=== PATIENT | female | born 1965 | race Caucasian/White ===

== ENCOUNTER → 2016-10-11 | Outpatient (CLI) | payer BC ==
--- NOTE | 2016-10-11 11:57 | DIAGNOSTIC IMAGING REPORT ---
CHEST 2 VIEWS ROUTINE CLINICAL HISTORY: Cough, asthma. COMPARISON STUDY: 05/21/2013 FINDINGS: The cardiac and mediastinal contours are normal. There is no evidence of focal pulmonary consolidation. There is no evidence of failure. No pleural effusions are visualized.[ There are bibasilar atelectatic changes. IMPRESSION: No active disease in the chest. Electronically signed by: Sarbjit Cisneros M.D. 10/11/2016 11:56 AM Dictated Date/Time: 10/11/2016 11:55 AM
== END | disposition home or self-care (01) ==
LOC: C.RAD1850 11:44
PROVIDERS: ATTEND Internal Medicine Pulmonary Disease
DX: J45.991 Cough variant asthma (principal)

== ENCOUNTER 2023-07-28 20:31 | Inpatient (IN) ==
[2023-07-28 22:33] LABS: Basophils # (auto) 0.01 K/uL (0.00-0.20); Basophils % (auto) 0.2 %; Eosinophils # (auto) 0.01 K/uL (0.00-0.50); Eosinophils % (auto) 0.2 %; Hematocrit (blood only) 39.8 % (37.0-47.0); Hemoglobin 13.5 g/dl (12.0-16.0); Immature Granulocytes # (auto) 0.02 K/uL (0.01-0.20); Immature Granulocytes % (auto) 0.3 %; Lymphocytes # (auto) 0.53 K/uL (1.20-3.40); Mean Corpuscular Hemoglobin 30.9 pg (25.0-34.0); Mean Corpuscular Hgb Conc 33.9 g/dL (32.0-36.0); Mean Corpuscular Volume 91.1 fL (80.0-100.0); Mean Platelet Volume 10.6 fL (9.4-12.4); Monocytes # (auto) 0.18 K/uL (0.11-0.59); Monocytes % (auto) 3.1 %; Neutrophils # (auto) 5.15 K/uL (1.40-6.50); Neutrophils % (auto) 87.2 %; Platelet Count 188 K/uL (130-400); RDW Coefficient of Variation 12.8 % (11.5-14.5); RDW Standard Deviation 42.8 fL (36.4-46.3); Red Blood Count 4.37 M/uL (4.20-5.40)
[2023-07-28 23:15] LABS: Albumin Level 4.3 gm/dl (3.4-5.0); Anion Gap 11 (3-11); Bilirubin,Total 0.4 mg/dl (0.2-1.0); Carbon Dioxide 22 mmol/L (21-32); Chloride 104 mmol/L (98-107); Potassium 3.9 mmol/L (3.5-5.1); Sodium 137 mmol/L (136-145)
[2023-07-28] MEDS ORDERED: ALBUT/IPRATROP 3MG/0.5MG NEB 3 ML VIAL NEB STA (23:16)
[2023-07-28 23:17] LABS: Adenovirus PCR Not Detected (NotDetected); Bordetella parapertussis PCR Not Detected (NotDetected); Bordetella pertussis PCR Not Detected (NotDetected); Chlamydia pneumoniae PCR Not Detected (NotDetected); Coronavirus 229E PCR Not Detected (NotDetected); Coronavirus HKU1 PCR Not Detected (NotDetected); Coronavirus NL63 PCR Not Detected (NotDetected); Coronavirus OC43PCR Not Detected (NotDetected); Human Metapneumovirus PCR Not Detected (NotDetected); Influenza A PCR Not Detected (NotDetected); Influenza B PCR Not Detected (NotDetected); Mycoplasma pneumoniae PCR Not Detected (NotDetected); Parainfluenza Virus 1 PCR Not Detected (NotDetected); Parainfluenza Virus 2 PCR Not Detected (NotDetected); Parainfluenza Virus 3 PCR Not Detected (NotDetected); Parainfluenza Virus 4 PCR Not Detected (NotDetected); Respiratory Syncytial VirusPCR Not Detected (NotDetected); Rhinovirus/Enterovirus PCR Not Detected (NotDetected)
--- NOTE | 2023-07-28 23:18 | Emergency Department Note ---
Impression & Plan Hypoxia ADMIT ED Provider Note HPI: History obtained from patient The patient is a 58-year-old female with history of asthma, presents emergency department with chief complaint of cough, wheezing, and shortness of breath that has been ongoing for the past 4 days. Patient states her symptoms have been worsening during this time, patient was seen at a local urgent care prior to arrival at the ED where she had a chest x-ray that she reports showed "double pneumonia". Patient was referred to the ED for further workup and lab work. On arrival here to the ED the patient is mildly hypertensive at 146/72, heart rate is within normal limits, respirations are normal, patient is afebrile on arrival, she has borderline oxygen saturation at 90% on room air on my initial assessment. ROS: - Per HPI Differential Diagnosis: Acute bacterial pneumonia, viral upper respiratory infection, asthma exacerbation, COVID-19 infection, influenza A infection, acute coronary syndrome, pulmonary embolism, amongst other potential pathologies. *Outpatient medications and allergy history reviewed. PE: General: Alert HEENT: Normocephalic, trachea midline Eyes: Extraocular eye movement is intact, no scleral erythema Pulmonary: Faint expiratory wheezing bilaterally without any crackles Cardio: Regular rate and rhythm GI: Abdomen is soft to palpation : No suprapubic tenderness MSK: No evidence of trauma or malformation of the extremities, no edema Skin: No evidence of rash Neuro: Alert, no focal deficits Psychiatric: Cooperative INDEPENDENT INTERPRETATIONS: property assessment monitor: (As interpreted by myself): - An order was placed for continuous cardiac monitoring - Patient was noted to be in sinus rhythm with a rate of 70 EKG: (As interpreted by myself): Rate: 68 Rhythm: Normal sinus rhythm Intervals: Within normal limits ST changes: No ST elevation Time: 2214 Chest x-ray: (As interpreted by myself): No evidence of acute infiltrate Interventions provided in ED: -DuoNeb breathing treatment Medical Decision Making: Patient presented to the emergency department with some wheezing and shortness of breath. She did receive a dose of intramuscular steroid prior to arrival from the urgent care facility. IV was established and lab work obtained, patient was placed on monitor tech. Lab work shows no leukocytosis, hemoglobin is normal, platelet count is normal, venous blood gas was obtained that shows a normal pH with slightly reduced pCO2 at 36. CMP does not show any critical findings, no evidence of acute kidney injury, no transaminitis, troponin is negative x 1. BNP is within normal limits, EKG per my interpretation shows normal sinus rhythm without any acute ischemic changes. Procalcitonin is also noted to be low. Viral panel testing is positive for COVID-19. I suspect this is likely the source of the patient's shortness of breath. Patient denies any chest pain, doubt ACS or PE given negative troponin, lack of CP, and reassuring EKG. Patient did have an episode of hypoxia to 87 to 88% on room air while here in the ED that was sustained, she was placed on oxime mask at 5 L with moderate improvement. Following DuoNeb breathing treatment here in the ED, the patient states she does feel mildly improved. She did receive intramuscular steroids at the urgent care today therefore she was not given any steroids here tonight. Given the patient's hypoxia I did recommend admission, she was in agreement following our discussion with her also at the bedside. Case was discussed with the on-call hospitalist for [facility], Dr. Du, the patient was placed for admission in stable condition. Consultants/Discussions held with other healthcare providers: -Hospitalist, Dr. Du Disposition discussion held by myself with: -Patient and at bedside * CRITICAL CARE TIME: ( 43 ) minutes -Stabilization of hypoxia with oxygen saturations at 88% on room air requiring supplemental oxygen for correction, interpretations of diagnostic studies including chest x-ray and EKG, time spent at the bedside, discussion with patient and family, discussion with other healthcare providers/physicians and arrangement of admission Diagnosis: 1. Hypoxia, acute 2. COVID-19 infection, acute 3. Bronchospasm, acute Disposition: Admission Otf Cosme DO Emergency Medicine Past Med/Surg History Social History Smoking Status: Current every day smoker Tobacco Type: Cigarettes Feels Safe at Home: Yes Allergies Allergies Allergy/AdvReac Type Severity Reaction Status Date / Time prochlorperazine AdvReac spasms Verified 07/29/23 00:57 [From Compazine] Home Meds Home Medications Medication Instructions Recorded Confirmed No Known Home Medications 07/29/23 07/29/23 Results & Data (ED) Vital Signs Vital Signs - 24 hr 07/28/23 21:09 07/28/23 22:59 07/28/23 22:59 Temperature 36.6 C Temperature Source Oral Pulse Rate 78 Pulse Rate [Finger] 62 Respiratory Rate 25 H 20 Respiratory Effort / Characteristics Non-Labored Respiratory Depth Normal Normal Blood Pressure 130/73 Blood Pressure [Left Arm] 146/72 H Blood Pressure Mean 92 Blood Pressure Mean [Left Arm] 96 Blood Pressure Position [Left Arm] Pulse Oximetry 92 97 90 Oxygen Delivery Method Room Air Room Air Room Air Oxygen Flow Rate Sepsis Recent Fever Within 48 Hours No Sepsis New/Unexplained Change in Mental Status N/A Sepsis Action Taken by Nursing No Action Required Oxygen Flow Rate - Titration Pulse Oximetry Post Tiitration 07/28/23 23:42 07/29/23 00:19 07/29/23 01:06 Temperature Temperature Source Pulse Rate 73 Pulse Rate [Finger] 67 Respiratory Rate 18 Respiratory Effort / Characteristics Non-Labored Spontaneous Respiratory Depth Normal Blood Pressure Blood Pressure [Left Arm] 120/71 Blood Pressure Mean Blood Pressure Mean [Left Arm] 87 Blood Pressure Position [Left Arm] Pulse Oximetry 87 L 90 Oxygen Delivery Method Room Air Oxymask Oxymask Oxygen Flow Rate 0 4 Sepsis Recent Fever Within 48 Hours Sepsis New/Unexplained Change in Mental Status Sepsis Action Taken by Nursing Oxygen Flow Rate - Titration 2 Pulse Oximetry Post Tiitration 92 07/29/23 02:04 07/29/23 02:12 Temperature Temperature Source Pulse Rate Pulse Rate [Finger] 65 Respiratory Rate 16 Respiratory Effort / Characteristics Respiratory Depth Blood Pressure Blood Pressure [Left Arm] 121/73 Blood Pressure Mean Blood Pressure Mean [Left Arm] 89 Blood Pressure Position [Left Arm] Sitting Pulse Oximetry 91 88 L Oxygen Delivery Method Oxymask Oxymask Oxygen Flow Rate 4 2 Sepsis Recent Fever Within 48 Hours Sepsis New/Unexplained Change in Mental Status Sepsis Action Taken by Nursing Oxygen Flow Rate - Titration 4 Pulse Oximetry Post Tiitration 91 Laboratory Data 07/28/23 22:16 07/28/23 22:16 Lab Results 07/28/23 07/28/23 Range/Units 22:16 23:21 WBC 5.90 (4.8-10.8) K/ul RBC 4.37 (4.20-5.40) M/uL Hgb 13.5 (12.0-16.0) g/dl Hct 39.8 (37.0-47.0) % MCV 91.1 (80.0-100.0) fL MCH 30.9 (25.0-34.0) pg MCHC 33.9 (32.0-36.0) g/dL RDW Std Deviation 42.8 (36.4-46.3) fL RDW Coeff of More 12.8 (11.5-14.5) % Plt Count 188 (130-400) K/uL MPV 10.6 (9.4-12.4) fL Immature Gran % (Auto) 0.3 % Neut % (Auto) 87.2 % Lymph % (Auto) 9.0 % [place] % (Auto) 3.1 % Eos % (Auto) 0.2 % Baso % (Auto) 0.2 % Neut # (Auto) 5.15 (1.40-6.50) K/uL Lymph # (Auto) 0.53 L (1.20-3.40) K/uL [place] # (Auto) 0.18 (0.11-0.59) K/uL Eos # (Auto) 0.01 (0.00-0.50) K/uL Baso # (Auto) 0.01 (0.00-0.20) K/uL Immature Gran # (Auto) 0.02 (0.01-0.20) K/uL VBG pH 7.41 (7.36-7.41) VBG pCO2 36 L (38-50) mmHg VBG pO2 56 mmHg VBG HCO3 23 mmol/L VBG O2 Saturation 88.6 % VBG Base Excess -1.4 mEq/L Sodium 137 (136-145) mmol/L Potassium 3.9 (3.5-5.1) mmol/L Chloride 104 (98-107) mmol/L Carbon Dioxide 22 (21-32) mmol/L Anion Gap 11 (3-11) BUN 16 (6-23) mg/dl Creatinine 0.94 (0.6-1.2) mg/dl Est Cr Clr Drug Dosing 76.0 ml/min Est GFR ( Amer) 77.0 ml/min Est GFR (Non-Af Amer) 66.4 ml/min BUN/Creatinine Ratio 17.0 (10-20) Glucose 154 H (70-99(Fasting)) mg/dl Calcium 9.0 (8.6-10.3) mg/dl Total Bilirubin 0.4 (0.2-1.0) mg/dl AST 19 (13-39) U/L ALT 19 (7-52) U/L Alkaline Phosphatase 74 (34-104) U/L Troponin I High Sens < 2.3 (0-14) pg/ml B-Natriuretic Peptide 9 (0-100) pg/ml Total Protein 7.8 (6.0-8.3) gm/dl Albumin 4.3 (3.4-5.0) gm/dl Globulin 3.5 (2.5-4.0) gm/dl Albumin/Globulin Ratio 1.2 (0.9-2) Procalcitonin < 0.05 (0-0.5) ng/ml Adenovirus (PCR) Not Detected (NotDetected) B. pertussis DNA (PCR) Not Detected (NotDetected) B.parapertussis DNA PCR Not Detected (NotDetected) C. pneumoniae DNA (PCR) Not Detected (NotDetected) Coronavirus OC43 (PCR) Not Detected (NotDetected) Coronavirus HKU1 (PCR) Not Detected (NotDetected) Coronavirus 229E (PCR) Not Detected (NotDetected) SARS-CoV-2 (PCR) DETECTED A* (NotDetected) Coronavirus NL63 (PCR) Not Detected (NotDetected) Human Metapneumovir PCR Not Detected (NotDetected) Influenza Type A (PCR) Not Detected (NotDetected) Influenza Type B (PCR) Not Detected (NotDetected) M. pneumoniae (PCR) Not Detected (NotDetected) Parainfluenza 1 (PCR) Not Detected (NotDetected) Parainfluenza 2 (PCR) Not Detected (NotDetected) Parainfluenza 3 (PCR) Not Detected (NotDetected) Parainfluenza 4 (PCR) Not Detected (NotDetected) RSV (PCR) Not Detected (NotDetected) Entero/Rhino (PCR) Not Detected (NotDetected) Administered Medications Discontinued Medications Albuterol (Albut/Ipratrop 3mg/0.5mg Neb 3 Ml Vial) 3 ml NEB NOW STA; Protocol Stop: 07/28/23 23:17 Last Admin: 07/28/23 23:21 Dose: 3 ml Documented By: DOE Discharge Plan Visit Data Chief Complaint: Respiratory Problems Stated Complaint: ?PNEUMONIA, TROUBLE BREATHING ED Provider: Otf Cosme Discharge Problem: Hypoxia Forms Stand Alone Forms: My [facility] [employer] [place] Prescriptions Prescriptions: No Action No Known Home Medications Referrals Referrals: Elian Newman MD [Primary Care Provider] -
[2023-07-28 23:19] LABS: Coronavirus CoV-2 (COVID19)PCR DETECTED (NotDetected)
[2023-07-28 23:21] LABS: Alanine Aminotransferase 19 U/L (7-52); Albumin Globulin Ratio 1.2 (0.9-2); Alkaline Phosphatase 74 U/L (34-104); Aspartate Aminotransferase 19 U/L (13-39); Blood Urea Nitrogen 16 mg/dl (6-23); Est GFR (Non-African American) 66.4 ml/min; Globulin 3.5 gm/dl (2.5-4.0); Glucose 154 mg/dl (70-99(Fasting)); Total Protein 7.8 gm/dl (6.0-8.3)
[2023-07-28 23:32] LABS: Base Excess VBG -1.4 mEq/L; HCO3 VBG 23 mmol/L; Oxygen Saturation VBG 88.6 %; PCO2 VBG 36 mmHg (38-50); PO2 VBG 56 mmHg; pH VBG 7.41 (7.36-7.41)
[2023-07-29 01:49] LABS: Troponin I High Sensitivity < 2.3 pg/ml (0-14)
[2023-07-29] MEDS ORDERED: ALBUT/IPRATROP 3MG/0.5MG NEB 3 ML VIAL ONE (02:54)
[2023-07-29] MEDS ORDERED: ALBUT/IPRATROP 3MG/0.5MG NEB 3 ML VIAL NEB STA ×2 (02:55→03:05)
--- NOTE | 2023-07-29 04:51 | History & Physical Report ---
Date of Service July 29, 2023 Assessment & Plan (1) Acute hypoxemic respiratory failure: Plan: 58-year-old female past med significant for cough variant asthma currently not on any inhalers presents with cough and shortness of breath and found to have COVID requiring 10 L oxygen. Acute hypoxemic respiratory failure Secondary to COVID and asthma exacerbation Requiring 10 L oxygen Last COVID booster was in March 2022 DuoNebs QID and as needed IV Solu-Medrol 40 mg 3 times daily IV remdesivir and follow remdesivir labs COVID precautions Pulmonary consult Close monitoring telemetry DVT prophylaxis Lovenox Disposition telemetry floor Full code History of Present Illness Chief Complaint: Shortness of breath and cough Primary Care Provider: Elian Newman MD 58-year-old female with past med history significant for cough variant asthma currently not on any inhalers presents with cough and shortness of breath and found to have COVID. Patient states 4 days ago she developed sore throat, next day she had headaches and fatigue and cough. Headache lasted for 2 days and resolved. Since yesterday she is having lot of cough short of breath and runny nose. Denies fevers. She went to [facility] and thought she has pneumonia and also given dose of steroid and sent here. Respiratory bio fire came back positive for COVID. Currently requiring 10 liters oxygen. Having lot of cough. Currently no headache. No blurred visions. No earache. No chest pain. No some nausea. Appetite is down. No abdominal pain. No swelling in the legs. No rash. Micturating okay. Past medical history. As mentioned above Past surgical history. Right arm cyst removed. Removal of pilonidal cyst. Family history. Paternal grandfather had cancer. Maternal grandmother had cancer. Uncle had cancer. Sister had gallbladder removal. Father and mother both had hypertension. Social history. Former smoker. No alcohol use. No drug use. Allergies Allergy/AdvReac Type Severity Reaction Status Date / Time prochlorperazine AdvReac spasms Verified 07/29/23 00:57 [From Compazine] Home Medications Medication Instructions Recorded Confirmed Type No Known Home Medications 07/29/23 07/29/23 History Past Med/Surg History Social History Smoking Status: Former smoker Tobacco Type: Cigarettes Second Hand Exposure: No; Do You Dip or Chew Tobacco: No; Tobacco Cessation Education Requested by Patient: No Hx Alcohol Use: Yes Hx Substance Use: No Preferred Language: Kyrgyz Communication Ability: Effective Oyster Buyer Required: No Beliefs That Will Affect Care: None Current Living Situation: Spouse Other Information That Helps Us Care for You: No Feels Safe at Home: Yes Safety Concerns: Feels Safe At This Time Assistive Devices: None Review of Systems Review of Systems: All systems reviewed & are unremarkable except as noted in HPI & below Physical Exam Physical Exam: General- Not in distress Head- atraumatic Eyes- PERRL. ENT- oropharynx clear Neck- supple, no JVD. Lungs- B/L diminished breath sounds. No obvious wheezing. Heart- regular rhythm; no murmur, no gallop. Abdomen- normal bowel sounds, soft, nontender, no distension. Extremities- no pretibial edema, moves extremities. Neuro- alert, oriented x 3; PERRL, no facial palsy; no dysarthria; moves extremities. Skin- warm & dry Results & Data Results & Data Vital Signs (Past 12 Hours) Vital Signs Temp Pulse Pulse Resp BP BP Pulse Ox 07/29/23 04:05 36.7 C 88 24 126/75 92 07/29/23 02:36 89 L 07/29/23 02:12 88 L 07/29/23 02:04 65 16 121/73 91 07/29/23 01:06 73 07/29/23 00:19 67 18 120/71 90 07/28/23 23:42 87 L 07/28/23 22:59 62 20 146/72 H 90 07/28/23 22:59 97 07/28/23 21:09 36.6 C 78 25 H 130/73 92 O2 Del Method O2 Flow Rate 07/29/23 04:05 Oxymask 10 07/29/23 02:36 Oxymask 4 07/29/23 02:12 Oxymask 2 07/29/23 02:04 Oxymask 4 07/29/23 01:06 07/29/23 00:19 Oxymask 4 07/28/23 23:42 Room Air, Oxymask 0 07/28/23 22:59 Room Air 07/28/23 22:59 Room Air 07/28/23 21:09 Room Air Diagnostic Findings Laboratory Results WBC 5.90 K/ul (4.8-10.8) 07/28/23 22:16 RBC 4.37 M/uL (4.20-5.40) 07/28/23 22:16 Hgb 13.5 g/dl (12.0-16.0) 07/28/23 22:16 Hct 39.8 % (37.0-47.0) 07/28/23 22:16 MCV 91.1 fL (80.0-100.0) 07/28/23 22:16 MCH 30.9 pg (25.0-34.0) 07/28/23 22:16 MCHC 33.9 g/dL (32.0-36.0) 07/28/23 22:16 RDW Std Deviation 42.8 fL (36.4-46.3) 07/28/23 22:16 RDW Coeff of More 12.8 % (11.5-14.5) 07/28/23 22:16 Plt Count 188 K/uL (130-400) 07/28/23 22:16 MPV 10.6 fL (9.4-12.4) 07/28/23 22:16 Immature Gran % (Auto) 0.3 % 07/28/23 22:16 Neut % (Auto) 87.2 % 07/28/23 22:16 Lymph % (Auto) 9.0 % 07/28/23 22:16 [place] % (Auto) 3.1 % 07/28/23 22:16 Eos % (Auto) 0.2 % 07/28/23 22:16 Baso % (Auto) 0.2 % 07/28/23 22:16 Neut # (Auto) 5.15 K/uL (1.40-6.50) 07/28/23 22:16 Lymph # (Auto) 0.53 K/uL (1.20-3.40) L 07/28/23 22:16 [place] # (Auto) 0.18 K/uL (0.11-0.59) 07/28/23 22:16 Eos # (Auto) 0.01 K/uL (0.00-0.50) 07/28/23 22:16 Baso # (Auto) 0.01 K/uL (0.00-0.20) 07/28/23 22:16 Immature Gran # (Auto) 0.02 K/uL (0.01-0.20) 07/28/23 22:16 VBG pH 7.41 (7.36-7.41) 07/28/23 23:21 VBG pCO2 36 mmHg (38-50) L 07/28/23 23:21 VBG pO2 56 mmHg 07/28/23 23:21 VBG HCO3 23 mmol/L 07/28/23 23:21 VBG O2 Saturation 88.6 % 07/28/23 23:21 VBG Base Excess -1.4 mEq/L 07/28/23 23:21 Sodium 137 mmol/L (136-145) 07/28/23 22:16 Potassium 3.9 mmol/L (3.5-5.1) 07/28/23 22:16 Chloride 104 mmol/L (98-107) 07/28/23 22:16 Carbon Dioxide 22 mmol/L (21-32) 07/28/23 22:16 Anion Gap 11 (3-11) 07/28/23 22:16 BUN 16 mg/dl (6-23) 07/28/23 22:16 Creatinine 0.94 mg/dl (0.6-1.2) 07/28/23 22:16 Est Cr Clr Drug Dosing 76.0 ml/min 07/28/23 22:16 Est GFR ( Amer) 77.0 ml/min 07/28/23 22:16 Est GFR (Non-Af Amer) 66.4 ml/min 07/28/23 22:16 BUN/Creatinine Ratio 17.0 (10-20) 07/28/23 22:16 Glucose 154 mg/dl (70-99(Fasting)) H 07/28/23 22:16 Calcium 9.0 mg/dl (8.6-10.3) 07/28/23 22:16 Total Bilirubin 0.4 mg/dl (0.2-1.0) 07/28/23 22:16 AST 19 U/L (13-39) 07/28/23 22:16 ALT 19 U/L (7-52) 07/28/23 22:16 Alkaline Phosphatase 74 U/L (34-104) 07/28/23 22:16 Troponin I High Sens < 2.3 pg/ml (0-14) 07/28/23 22:16 B-Natriuretic Peptide 9 pg/ml (0-100) 07/28/23 23:21 Total Protein 7.8 gm/dl (6.0-8.3) 07/28/23 22:16 Albumin 4.3 gm/dl (3.4-5.0) 07/28/23 22:16 Globulin 3.5 gm/dl (2.5-4.0) 07/28/23 22:16 Albumin/Globulin Ratio 1.2 (0.9-2) 07/28/23 22:16 Procalcitonin < 0.05 ng/ml (0-0.5) 07/28/23 23:21 Adenovirus (PCR) Not Detected (NotDetected) 07/28/23 22:16 B. pertussis DNA (PCR) Not Detected (NotDetected) 07/28/23 22:16 B.parapertussis DNA PCR Not Detected (NotDetected) 07/28/23 22:16 C. pneumoniae DNA (PCR) Not Detected (NotDetected) 07/28/23 22:16 Coronavirus OC43 (PCR) Not Detected (NotDetected) 07/28/23 22:16 Coronavirus HKU1 (PCR) Not Detected (NotDetected) 07/28/23 22:16 Coronavirus 229E (PCR) Not Detected (NotDetected) 07/28/23 22:16 SARS-CoV-2 (PCR) DETECTED (NotDetected) A* 07/28/23 22:16 Coronavirus NL63 (PCR) Not Detected (NotDetected) 07/28/23 22:16 Human Metapneumovir PCR Not Detected (NotDetected) 07/28/23 22:16 Influenza Type A (PCR) Not Detected (NotDetected) 07/28/23 22:16 Influenza Type B (PCR) Not Detected (NotDetected) 07/28/23 22:16 M. pneumoniae (PCR) Not Detected (NotDetected) 07/28/23 22:16 Parainfluenza 1 (PCR) Not Detected (NotDetected) 07/28/23 22:16 Parainfluenza 2 (PCR) Not Detected (NotDetected) 07/28/23 22:16 Parainfluenza 3 (PCR) Not Detected (NotDetected) 07/28/23 22:16 Parainfluenza 4 (PCR) Not Detected (NotDetected) 07/28/23 22:16 RSV (PCR) Not Detected (NotDetected) 07/28/23 22:16 Entero/Rhino (PCR) Not Detected (NotDetected) 07/28/23 22:16 ECG Additional Comments: ECG. Normal sinus rhythm at a rate of 68. No acute ST changes seen. Code Status & VTE Plan VTE Prophylaxis Plan VTE Prophylaxis will be ordered: Yes
[2023-07-29] MEDS ORDERED: guaiFENesin/CODEINE 100MG/10MG 5ML UDC PO PRN (05:17)
[2023-07-29] MEDS ORDERED: ALBUT/IPRATROP 3MG/0.5MG NEB 3 ML VIAL NEB PRN (05:17)
[2023-07-29] MEDS ORDERED: ACETAMINOPHEN 325 MG TAB PO PRN (05:17)
[2023-07-29] MEDS ORDERED: NITROGLYCERIN SL 0.4 MG/TAB TAB SL PRN (05:17)
[2023-07-29] MEDS ORDERED: SODIUM CHLORIDE 0.9% 1,000 ML IV SCH (05:17)
[2023-07-29] MEDS: ENOXAPARIN INJ 40 MG/0.4 ML SYR SQ SCH (05:59)
[2023-07-29] MEDS ORDERED: REMDESIVIR 200 MG in SODIUM CHLORIDE 0.9% 210 ML IV ONE (06:00)
[2023-07-29 06:51] LABS: Hematocrit (blood only) 34.7 % (37.0-47.0); Immature Granulocytes # (auto) 0.02 K/uL (0.01-0.20); Immature Granulocytes % (auto) 0.7 %; Lymphocytes # (auto) 0.44 K/uL (1.20-3.40); Lymphocytes % (auto) 14.5 %; Mean Corpuscular Hemoglobin 31.1 pg (25.0-34.0); Mean Corpuscular Hgb Conc 34.6 g/dL (32.0-36.0); Mean Corpuscular Volume 89.9 fL (80.0-100.0); Mean Platelet Volume 10.7 fL (9.4-12.4); Monocytes # (auto) 0.07 K/uL (0.11-0.59); Monocytes % (auto) 2.3 %; Neutrophils # (auto) 2.51 K/uL (1.40-6.50); Neutrophils % (auto) 82.5 %; Platelet Count 178 K/uL (130-400); RDW Coefficient of Variation 12.8 % (11.5-14.5); RDW Standard Deviation 42.7 fL (36.4-46.3); Red Blood Count 3.86 M/uL (4.20-5.40); White Blood Count 3.04 K/ul (4.8-10.8)
[2023-07-29 07:09] LABS: BUN Creatinine Ratio 15.8 (10-20); Calcium 8.5 mg/dl (8.6-10.3); Est GFR (African American) 99.5 ml/min; Est GFR (Non-African American) 85.9 ml/min; Magnesium 2.1 mg/dl (1.7-2.4); Potassium 4.1 mmol/L (3.5-5.1)
--- NOTE | 2023-07-29 07:12 | XRay Report ---
SINGLE VIEW CHEST CLINICAL HISTORY: Dyspnea FINDINGS: A PA chest radiograph is compared to study dated 10/11/2016. The cardiomediastinal silhouett e is unremarkable. There is elevation of the left hemidiaphragm and bibasilar atelectasis. The lungs and pleural spaces are otherwise clear. No pneumothorax is seen. The skeletal structures are osteopen ic. The bony thorax is grossly intact. IMPRESSION: No active disease in the chest. ACT 112: Negative or not required by law. Electronically signed by: Darien Quinn M.D. 07/29/2023 7:11 AM
[2023-07-29] MEDS: ALBUT/IPRATROP 3MG/0.5MG NEB 3 ML VIAL NEB SCH ×4 (07:13→19:34)
--- NOTE | 2023-07-29 07:16 | Pulmonary Consultation ---
Date of Consultation July 29, 2023 Assessment & Plan (1) Acute hypoxemic respiratory failure: (2) Abnormal chest CT: (3) COVID-19: (4) Obesity: Plan CTA chest 07/29/2023 personally reviewed: Elevated left hemidiaphragm Dependent atelectasis versus consolidative process appreciated bilateral lower lobes No other clear lung infiltrate appreciated Cardiomegaly No significant mediastinal lymphadenopathy --Acute hypoxic respiratory failure Secondary to multilobar COVID-19 pneumonia Cannot rule out superimposed bacterial infection COVID-19 PCR positive CRP 2.85 Procalcitonin negative Continue with O2 supplementation to keep oxygen saturation between 90-92%. Awake proning will be helpful Continue with incentive spirometry Continue with flutter valve. 100 proning would also be beneficial Recommend patient to be kept euvolemic to negative balance --Asthma exacerbation Likely secondary to COVID-19 pneumonia Continue with steroids and inhaled bronchodilators -- Obesity with probable EDUARDO Trial of PAP nightly and as needed shortness of breath Plan: Patient is requiring at least 12 L of oxygen mask. If she continues to have increased requirement of oxygen then high flow will be the neck step She will benefit from CPAP given the BMI. Continue with Solu-Medrol, will gradually transition down to 40 mg daily or dexamethasone 6 mg daily Brovana and budesonide nebulized added to the patient's regimen Please note the above document was generated using voice recognition software. It may contain grammatical, syntax or spelling errors.Any formal questions or concerns about the content, text or information contained within the body of this dictation should be directly addressed to the provider for clarification. History of Present Illness Attending Physician: Eli Hylton MD History of Present Illness 58-year-old female present to the hospital with complaints of shortness of breath progressively getting worse Past medical history: Intermittent asthma, obesity Pulmonary consulted for increasing oxygen requirement At the time of examination patient was saturating 89% on 10 L oxime mask. While talking her saturation did go down to 87% and increased to 12 L was also in the room. Patient stated that approximately 7-10 days ago she had an upper respite tract infection and she was diagnosed with bronchitis and given antibiotics and prednisone. She was doing well but then she got worse for which she went to [facility] and she was transferred to the hospital for oxygen requirement Did complain of subjective chills but did not check her temperature No dysuria, no diarrhea No nausea vomiting Does complain of some abdominal bloating No recent weight gain Social history: Lifetime non-smoker Allergies Allergy/AdvReac Type Severity Reaction Status Date / Time prochlorperazine AdvReac spasms Verified 07/29/23 00:57 [From Compazine] Home Medications Medication Instructions Recorded Confirmed Type No Known Home Medications 07/29/23 07/29/23 History Patient History Social History Smoking Status: Former smoker Tobacco Type: Cigarettes Second Hand Exposure: No; Do You Dip or Chew Tobacco: No; Tobacco Cessation Education Requested by Patient: No Hx Alcohol Use: Yes Hx Substance Use: No Preferred Language: Danish Communication Ability: Effective Soil Checker Required: No Beliefs That Will Affect Care: None Current Living Situation: Spouse Other Information That Helps Us Care for You: No Feels Safe at Home: Yes Safety Concerns: Feels Safe At This Time Assistive Devices: None Review of Systems 2 Review of Systems: All systems reviewed & are unremarkable except as noted in HPI & below Physical Exam 2 Physical Exam: Constitutional: No acute distress HEENT: EOMI, PERRLA Respiratory system: Decreased air entry bilaterally, no rhonchi, positive expiratory wheeze, positive crackles bilateral lower lobes CVS: S1-S2 positive, no murmurs or gallops Abdomen: Soft, nontender, nondistended, positive bowel sounds x4, obese Extremities: +2 pulses bilaterally radialis/ dorsalis pedis, no cyanosis, no edema Neuro: Awake alert oriented x3 Psych: Normal mood and affect G/U: No Torre Skin: no rashes, warm and dry Lymphatic: no cervical or axillary lymphadenopathy Results & Data Results & Data Vital Signs (Past 12 Hours) Vital Signs Temp Pulse Pulse Resp BP BP Pulse Ox 07/29/23 05:49 07/29/23 05:42 36.4 C L 69 25 H 133/64 92 07/29/23 05:41 07/29/23 04:58 75 07/29/23 04:05 36.7 C 88 24 126/75 92 07/29/23 02:36 89 L 07/29/23 02:12 88 L 07/29/23 02:04 65 16 121/73 91 07/29/23 01:06 73 07/29/23 00:19 67 18 120/71 90 07/28/23 23:42 87 L 07/28/23 22:59 62 20 146/72 H 90 07/28/23 22:59 97 07/28/23 21:09 36.6 C 78 25 H 130/73 92 Pulse Ox O2 Del Method O2 Del Method O2 Flow Rate O2 Flow Rate 07/29/23 05:49 Oxymask 10 07/29/23 05:42 Oxymask 10 07/29/23 05:41 92 Oxymask 10 07/29/23 04:58 07/29/23 04:05 Oxymask 10 07/29/23 02:36 Oxymask 4 07/29/23 02:12 Oxymask 2 07/29/23 02:04 Oxymask 4 07/29/23 01:06 07/29/23 00:19 Oxymask 4 07/28/23 23:42 Room Air, Oxymask 0 07/28/23 22:59 Room Air 07/28/23 22:59 Room Air 07/28/23 21:09 Room Air Laboratory Results 07/29/23 06:36 07/29/23 06:36 PG Care Time/CCT Total # of Minutes Spent Total Time Spent with Patient: Total time spent is greater than 50% in coordination of care (as documented) at patient's floor/unit and/or counseling patient: Coding Level of Care Code 04977 INT INP/OBS CARE 3/75MIN Diagnoses Acute hypoxemic respiratory failure J96.[address] R93.89 COVID-19 U07.1 Obesity E66.9
[2023-07-29] MEDS: methylPREDNISolone 40 MG in SYRINGE 0 ML IV SCH ×3 (08:11→22:21)
[2023-07-29] MEDS: BENZONATATE 100 MG CAPSULE PO SCH ×3 (08:11→21:32)
[2023-07-29 08:28] LABS: C Reactive Protein 2.85 mg/dl (0-0.5)
[2023-07-29] MEDS ORDERED: OPTIRAY 320 125ml IV ONE (09:17)
--- NOTE | 2023-07-29 09:28 | CT Scan Report ---
CT ANGIOGRAM OF THE CHEST CLINICAL HISTORY: Dyspnea. COMPARISON STUDY: Chest x-ray dated 07/28/2023. TECHNIQUE: Following the IV administration of 118 cc of Optiray 320, CT angiogram of the chest was pe rformed from the upper abdomen to the thoracic inlet utilizing the pulmonary embolus protocol. Images are reviewed in the axial, sagittal, and coronal planes. 3-D MIPS images are created and assessed. I V contrast was administered without complication. A dose lowering technique was utilized adhering to the principles of ALARA. The examination is degraded by motion artifact. FINDINGS: Thyroid: Imaged portions of the thyroid gland are normal in size and attenuation. Thoracic aorta: The thoracic aorta is normal in caliber and demonstrates standard 3-vessel arch anato my. No dissection is seen. Pulmonary vasculature: The main pulmonary arteries are dilated suggesting pulmonary artery hypertensi on. There are no filling defects identified in main, lobar, or segmental pulmonary branches to sugges t pulmonary embolus. Evaluation of the peripheral branches is significantly degraded by motion artifa ct. Heart: The heart is enlarged and without pericardial effusion. Lungs and pleural spaces: Dependent consolidation is present at both lung bases. No pleural effusion is identified. The trachea and central airways are clear. Mediastinum: There is no mediastinal lymphadenopathy. Jenniffer: Clear. Axillae: There is no axillary lymphadenopathy. Upper abdomen: Partially visualized upper abdominal viscera is grossly unremarkable but not well asse ssed due to motion artifact. Skeletal structures: No lytic or blastic bony lesions are seen. IMPRESSION: 1. There is no evidence of pulmonary embolus in the main, lobar, or segmental pulmonary arteries. 2. Cardiomegaly. 3. Dependent consolidation at both lung bases could represent atelectasis and/or pneumonia. Clinical correlation will be required and radiographic follow-up to resolution is recommended. 4. Additional findings as above. ACT 112: Negative or not required by law. Electronically signed by: Darien Quinn M.D. 07/29/2023 9:27 AM
[2023-07-29] MEDS ORDERED: ASPIRIN/ALUM/MAGNES/CAL CARB 325 MG TAB PO PRN (09:29)
[2023-07-29] MEDS: guaiFENesin/CODEINE 100MG/10MG 5ML UDC PO SCH ×3 (10:14→22:15)
[2023-07-29] MEDS ORDERED: ACETAMINOPHEN 325 MG TAB ONE (10:19)
[2023-07-29] MEDS: ACETAMINOPHEN 325 MG TAB PO SCH ×3 (10:22→23:50)
[2023-07-29] MEDS: AZITHROMYCIN 250 MG TAB PO SCH (13:13)
--- NOTE | 2023-07-29 14:29 | Electrocardiogram Report ---
Test Reason : Blood Pressure : / mmHG Vent. Rate : 068 BPM Atrial Rate : 068 BPM P-R Int : 154 ms QRS Dur : 072 ms QT Int : 394 ms P-R-T Axes : 002 -04 033 degrees QTc Int : 418 ms Normal sinus rhythm Poor R wave progression, consider anterior MA vs. lead placement vs. LVH Abnormal ECG No previous ECGs available Confirmed by Zaki Orourke ([id number]) on 07/29/2023 2:28:58 PM Referred By: REFERRED SELF Confirmed By:Artemio Orourke
--- NOTE | 2023-07-29 16:05 | Communication Note ---
Date of Service: July 29, 2023 Ms. Tsering Montoya is a 58-year-old female past med significant for cough variant asthma currently not on any inhalers presents with cough and shortness of breath who was admitted for acute hypoxc respiratory failure secondary to COVID pneumonia iso cough variant asthma Patient's oxygen requirments have increased throughout course of day, going up to HFNC She is not in respiratory distress, but notes multiple coughing fits that can be difficult to recover from. requested scheduling of medications as able. If worsening consider transition to CPAP per pulm recommendations #Acute hypoxemic respiratory failure, multifactorial #COVID pneumonia #Cough Variant Asthma Last COVID booster was in March 2022 increasing O2 needs Reviewed Pulmonary recommendations: -Continue Solumedrol, consider slow transition once saturations improve -DuoNebs QID and as needed -Brovana and budesonide added to regimen per pulm Enhanced precuations of COVID -Scheduled tylenol and cough syrup per patient request -Continue remdesivir -Symptom management DVT prophylaxis Lovenox Disposition telemetry/PCU
[2023-07-29] MEDS: FORMOTEROL 20 MCG/2 ML VIAL INH SCH (19:33)
[2023-07-29] MEDS: BUDESONIDE 0.25 MG/2 ML VIAL (PULMICORT) NEB SCH (19:33)
[2023-07-29] MEDS ORDERED: LORazepam 0.5 MG TAB PO STA (22:03)
[2023-07-29] MEDS ORDERED: LORazepam 0.5 MG TAB ONE (22:13)
[2023-07-29 22:31] LABS: Appearance Urine Clear (Clear); Bacteria Urine Automated Negative (Negative); Bilirubin Urine Negative (Negative); Blood Urine Trace (Negative); Cast Urine Automated 0 /lpf (0-5); Color Urine Yellow; Glucose Urine UA Negative (Negative); Ketones Urine Negative (Negative); Leukocyte Esterase Urine Negative (Negative); Nitrite Urine Negative (Negative); Protein Urine Negative (Negative); Specific Gravity Urine 1.013 (1.000-1.030); Urobilinogen Urine Negative (Negative)
[2023-07-30] MEDS: ENOXAPARIN INJ 40 MG/0.4 ML SYR SQ SCH (05:03)
[2023-07-30] MEDS: ACETAMINOPHEN 325 MG TAB PO SCH ×3 (05:03→16:57)
[2023-07-30] MEDS: guaiFENesin/CODEINE 100MG/10MG 5ML UDC PO SCH ×4 (05:04→21:30)
[2023-07-30] MEDS: ALBUT/IPRATROP 3MG/0.5MG NEB 3 ML VIAL NEB SCH ×4 (07:12→20:06)
[2023-07-30] MEDS: BUDESONIDE 0.25 MG/2 ML VIAL (PULMICORT) NEB SCH ×2 (07:12→20:06)
[2023-07-30] MEDS: FORMOTEROL 20 MCG/2 ML VIAL INH SCH ×2 (07:12→20:06)
[2023-07-30 07:41] LABS: Hematocrit (blood only) 35.2 % (37.0-47.0); Hemoglobin 11.7 g/dl (12.0-16.0); Mean Corpuscular Hemoglobin 30.7 pg (25.0-34.0); Mean Corpuscular Hgb Conc 33.2 g/dL (32.0-36.0); Mean Corpuscular Volume 92.4 fL (80.0-100.0); Mean Platelet Volume 10.7 fL (9.4-12.4); Platelet Count 204 K/uL (130-400); RDW Coefficient of Variation 13.2 % (11.5-14.5); RDW Standard Deviation 44.8 fL (36.4-46.3); Red Blood Count 3.81 M/uL (4.20-5.40); White Blood Count 8.77 K/ul (4.8-10.8)
[2023-07-30 08:10] LABS: Albumin Level 3.6 gm/dl (3.4-5.0); BUN Creatinine Ratio 19.7 (10-20); Bilirubin,Total 0.4 mg/dl (0.2-1.0); C Reactive Protein 1.17 mg/dl (0-0.5); Calcium 8.4 mg/dl (8.6-10.3); Creatinine Clr Calc Pharmacy 94.2 ml/min; Est GFR (African American) 99.5 ml/min; Est GFR (Non-African American) 85.9 ml/min; Magnesium 2.3 mg/dl (1.7-2.4); Phosphorus 4.2 mg/dl (2.5-4.9); Potassium 4.3 mmol/L (3.5-5.1); Total Protein 6.5 gm/dl (6.0-8.3)
[2023-07-30] MEDS: AZITHROMYCIN 250 MG TAB PO SCH (08:27)
[2023-07-30] MEDS: BENZONATATE 100 MG CAPSULE PO SCH ×3 (08:27→21:30)
[2023-07-30] MEDS: methylPREDNISolone 40 MG in SYRINGE 0 ML IV SCH ×3 (08:27→20:01)
--- NOTE | 2023-07-30 12:42 | Hospitalist Progress Note ---
Date of Service July 30, 2023 Assessment & Plan (1) Acute hypoxemic respiratory failure: Plan: per 58-year-old female past med significant for cough variant asthma currently not on any inhalers presents with cough and shortness of breath and found to have COVID requiring 10 L oxygen. Acute hypoxemic respiratory failure Secondary to COVID 19 Pneumonia, Asthma Exacerbation Requiring 10 L oxygen Last COVID booster was in March 2022 DuoNebs QID and as needed IV Solu-Medrol 40 mg 3 times daily IV remdesivir and follow remdesivir labs COVID precautions Pulmonary consult Close monitoring telemetry 07/30 CT chest: 1. There is no evidence of pulmonary embolus in the main, lobar, or segmental pulmonary arteries. 2. Cardiomegaly. 3. Dependent consolidation at both lung bases could represent atelectasis and/or pneumonia. Clinical correlation will be required and radiographic follow-up to resolution is recommended. 4. Additional findings as above. Tolerating CPAP Seems to be improving this morning although still requires 10 to 15 L of O2 via nonrebreather Continue remdesivir Continue Solu-Medrol 40 mg 3 times daily Continue CPAP Continue flutter valve, sinus parameter On Lovenox subcu for DVT prophylaxis Pulmonary service consulted DVT prophylaxis Lovenox Disposition telemetry floor Full code plan of care discussed with patient and her Erlin in detail and at length all questions answered they are understanding, agreeable, comfortable with the plan of care Admission and Anticipated Discharge Date Admission Date: July 29, 2023 Subjective COVID-19 multifocal pneumonia, acute hypoxic respiratory failure, etc. Seen resting in bed, comfortable, not in distress On 15 L of O2 via nonrebreather Also on CPAP overnight, tolerating this well Patient states she is able to stand up and move around her bed better compared to yesterday Less dyspnea Still having occasional productive cough No chest pain, fevers or chills, etc. Review of Systems Review of Systems: all noted and negative except for above Physical Exam Physical Exam: General- oriented x 3, not in distress, speaks in sentences with no effort or accessory muscle use Eyes- anicteric Neck- no JVD Lungs- clear breath sounds bilaterally, no rales/wheezes Heart- normal rate, regular rhythm; no murmurs Abdomen- normal bowel sounds, nondistended, soft, nontender Extremities- no pretibial edema, no calf tenderness Neuro- alert, oriented x 3; no gross focal neurologic deficits Skin- warm & dry Results & Data Results & Data Vital Signs (Past 12 Hours) Vital Signs Temp Pulse Pulse Pulse Resp BP Pulse Ox 07/30/23 11:57 36.6 C 71 20 118/72 93 07/30/23 10:46 78 20 94 07/30/23 08:00 80 07/30/23 08:00 07/30/23 07:17 66 22 90 07/30/23 07:13 36.8 C 63 22 117/76 92 07/30/23 05:00 36.4 C L 65 24 127/84 92 07/30/23 02:42 70 19 97 O2 Del Method O2 Flow Rate FiO2 07/30/23 11:57 Non-rebreather 15.0 07/30/23 10:46 CPAP 60 07/30/23 08:00 07/30/23 08:00 BiPAP, Non-rebreather 15 07/30/23 07:17 Oxymask 15 07/30/23 07:13 Oxymask 8.0 07/30/23 05:00 CPAP 60 07/30/23 02:42 80 all noted and reviewed including below
[2023-07-30] MEDS: REMDESIVIR 100 MG in SODIUM CHLORIDE 0.9% 230 ML IV SCH (13:30)
--- NOTE | 2023-07-30 15:16 | Pulmonology Progress Note ---
Date of Service July 30, 2023 Assessment & Plan (1) Acute hypoxemic respiratory failure: (2) Abnormal chest CT: (3) COVID-19: (4) Obesity: Plan CTA chest 07/29/2023 personally reviewed: Elevated left hemidiaphragm Dependent atelectasis versus consolidative process appreciated bilateral lower lobes No other clear lung infiltrate appreciated Cardiomegaly No significant mediastinal lymphadenopathy --Acute hypoxic respiratory failure Secondary to multilobar COVID-19 pneumonia Cannot rule out superimposed bacterial infection COVID-19 PCR positive CRP 2.85 Procalcitonin negative Continue with O2 supplementation to keep oxygen saturation between 90-92%. Awake proning will be helpful Continue with incentive spirometry Continue with flutter valve. 100 proning would also be beneficial Recommend patient to be kept euvolemic to negative balance --Asthma exacerbation Likely secondary to COVID-19 pneumonia Continue with steroids and inhaled bronchodilators -- Obesity with probable EDUARDO Trial of PAP nightly and as needed shortness of breath Plan: Continue with flutter valve as well as incentive spirometry Antitussive medication to prevent coughing fit Proning will be beneficial to the patient, this was related and she is willing to do it Continue with CPAP nightly and as needed shortness of breath Continue with Solu-Medrol, will gradually transition down to 40 mg daily or dexamethasone 6 mg daily Continue with Brovana and budesonide nebulized Keep O2 saturation between 90-92% Case was discussed with Dr. Sutton Please note the above document was generated using voice recognition software. It may contain grammatical, syntax or spelling errors.Any formal questions or concerns about the content, text or information contained within the body of this dictation should be directly addressed to the provider for clarification. Admission and Anticipated Discharge Date Admission Date: July 29, 2023 Subjective Patient seen and examined at bedside. No acute distress, no adverse events overnight She was on 15 L oxy mask saturating 97-98%. I went down to 10 L she was still saturating 91% at the end of the examination Overall she states she is feeling better. She still coughs is not able to bring much phlegm. Has been using incentive spirometry as well as flutter valve Denies any hemoptysis She was able to tolerate CPAP last night. She does complain of getting short of breath very easily on minimal exertion Patient's was also in the room Review of Systems 2 Review of Systems: All systems reviewed & are unremarkable except as noted in Subjective Physical Exam 2 Physical Exam: Constitutional: No acute distress HEENT: EOMI, PERRLA Respiratory system: Decreased air entry bilaterally, no rhonchi, positive expiratory wheeze, positive crackles bilateral lower lobes CVS: S1-S2 positive, no murmurs or gallops Abdomen: Soft, nontender, nondistended, positive bowel sounds x4, obese Extremities: +2 pulses bilaterally radialis/ dorsalis pedis, no cyanosis, no edema Neuro: Awake alert oriented x3 Psych: Normal mood and affect G/U: No Torre Skin: no rashes, warm and dry Lymphatic: no cervical or axillary lymphadenopathy Results & Data Results & Data Vital Signs (Past 12 Hours) Vital Signs Temp Pulse Pulse Pulse Resp BP Pulse Ox 07/30/23 11:57 36.6 C 71 20 118/72 93 07/30/23 10:46 78 20 94 07/30/23 08:00 80 07/30/23 08:00 07/30/23 07:17 66 22 90 07/30/23 07:13 36.8 C 63 22 117/76 92 07/30/23 05:00 36.4 C L 65 24 127/84 92 O2 Del Method O2 Flow Rate FiO2 07/30/23 11:57 Non-rebreather 15.0 07/30/23 10:46 CPAP 60 07/30/23 08:00 07/30/23 08:00 BiPAP, Non-rebreather 15 07/30/23 07:17 Oxymask 15 07/30/23 07:13 Oxymask 8.0 07/30/23 05:00 CPAP 60 Laboratory Results 07/30/23 07:08 07/30/23 07:08 PG Care Time/CCT Total # of Minutes Spent Total Time Spent with Patient: Total time spent is greater than 50% in coordination of care (as documented) at patient's floor/unit and/or counseling patient: Coding Level of Care Code 51812 SUB INP/OBS CARE 3/50MIN Diagnoses Acute hypoxemic respiratory failure J96.[address] R93.89 COVID-19 U07.1 Obesity E66.9
[2023-07-30] MEDS: LORazepam 0.5 MG TAB PO PRN (22:02)
[2023-07-31] MEDS: ACETAMINOPHEN 325 MG TAB PO SCH ×5 (00:07→23:42)
[2023-07-31] MEDS: guaiFENesin/CODEINE 100MG/10MG 5ML UDC PO SCH ×4 (03:20→22:02)
[2023-07-31] MEDS: ENOXAPARIN INJ 40 MG/0.4 ML SYR SQ SCH (05:52)
[2023-07-31] MEDS: BUDESONIDE 0.25 MG/2 ML VIAL (PULMICORT) NEB SCH ×2 (07:25→19:29)
[2023-07-31] MEDS: ALBUT/IPRATROP 3MG/0.5MG NEB 3 ML VIAL NEB SCH ×5 (07:25→19:28)
[2023-07-31] MEDS: FORMOTEROL 20 MCG/2 ML VIAL INH SCH ×2 (07:25→19:28)
[2023-07-31] MEDS: BENZONATATE 100 MG CAPSULE PO SCH ×3 (08:04→22:02)
[2023-07-31] MEDS: AZITHROMYCIN 250 MG TAB PO SCH (08:04)
[2023-07-31 08:26] LABS: Alanine Aminotransferase 18 U/L (7-52); Aspartate Aminotransferase 17 U/L (13-39)
[2023-07-31] MEDS: methylPREDNISolone 40 MG in SYRINGE 0 ML IV SCH ×2 (09:24→13:01)
--- NOTE | 2023-07-31 11:07 | Pulmonology Progress Note ---
Date of Service July 31, 2023 Assessment & Plan (1) Acute hypoxemic respiratory failure: (2) Abnormal chest CT: (3) COVID-19: (4) Obesity: Plan CTA chest 07/29/2023 personally reviewed: Elevated left hemidiaphragm Dependent atelectasis versus consolidative process appreciated bilateral lower lobes No other clear lung infiltrate appreciated Cardiomegaly No significant mediastinal lymphadenopathy --Acute hypoxic respiratory failure Secondary to multilobar COVID-19 pneumonia Cannot rule out superimposed bacterial infection COVID-19 PCR positive CRP 2.85 Procalcitonin negative Continue with O2 supplementation to keep oxygen saturation between 90-92%. Awake proning will be helpful Continue with incentive spirometry Continue with flutter valve. 100 proning would also be beneficial Recommend patient to be kept euvolemic to negative balance --Asthma exacerbation Likely secondary to COVID-19 pneumonia Continue with steroids and inhaled bronchodilators -- Obesity with probable EDUARDO Trial of PAP nightly and as needed shortness of breath Plan: Continue with flutter valve as well as incentive spirometry Antitussive medication to prevent coughing fit Proning will be beneficial to the patient, this was related and she is willing to do it Continue with CPAP nightly and as needed shortness of breath Decrease Solu-Medrol to 40 mg twice daily Continue with Brovana and budesonide nebulized Keep O2 saturation between 90-92% Case was discussed with RN, RT and Dr. Sutton Please note the above document was generated using voice recognition software. It may contain grammatical, syntax or spelling errors.Any formal questions or concerns about the content, text or information contained within the body of this dictation should be directly addressed to the provider for clarification. Admission and Anticipated Discharge Date Admission Date: July 29, 2023 Subjective Patient seen and examined at bedside. No acute distress, no adverse events overnight She was lying on the bed on the right decubitus position, she was on CPAP of 8 cm H2O when it started examination and she was saturating 97% on 60% FiO2 She took it off and put herself on nonrebreather 8 L and she was still saturating 96%, I was able to even go down to 6 L and she was still saturating 92-93% Overall she states she is feeling better compared to before Still having bouts of cough especially when she is doing something. Does get short of breath very easily on minimal exertion No chest pain Passing gas but no bowel movement since Friday No headache, no blurry vision Fair appetite Patient's was in the room at the time of examination Review of Systems 2 Review of Systems: All systems reviewed & are unremarkable except as noted in Subjective Physical Exam 2 Physical Exam: Constitutional: No acute distress HEENT: EOMI, PERRLA Respiratory system: Decreased air entry bilaterally, no rhonchi, minimal wheeze, positive crackles bilateral lower lobes CVS: S1-S2 positive, no murmurs or gallops Abdomen: Soft, nontender, nondistended, positive bowel sounds x4, obese Extremities: +2 pulses bilaterally radialis/ dorsalis pedis, no cyanosis, no edema Neuro: Awake alert oriented x3 Psych: Normal mood and affect G/U: No Torre Skin: no rashes, warm and dry Lymphatic: no cervical or axillary lymphadenopathy Results & Data Results & Data Vital Signs (Past 12 Hours) Vital Signs Temp Pulse Pulse Resp BP BP Pulse Ox 07/31/23 10:08 07/31/23 07:44 37.1 C 65 20 109/68 94 07/31/23 07:26 59 L 18 94 07/31/23 05:59 95 07/31/23 04:01 36.3 C L 69 20 123/66 93 07/30/23 23:34 36.9 C 86 20 104/66 94 07/30/23 23:18 O2 Del Method O2 Flow Rate 07/31/23 10:08 Oxymask 8 07/31/23 07:44 Oxymask 12 07/31/23 07:26 Oxymask 8 07/31/23 05:59 Oxymask 12 07/31/23 04:01 Oxymask 12 07/30/23 23:34 Non-rebreather 07/30/23 23:18 Oxymask 12 Laboratory Results 07/30/23 07:08 07/30/23 07:08 PG Care Time/CCT Total # of Minutes Spent Total Time Spent with Patient: Total time spent is greater than 50% in coordination of care (as documented) at patient's floor/unit and/or counseling patient: Coding Level of Care Code 81699 SUB INP/OBS CARE 3/50MIN Diagnoses Acute hypoxemic respiratory failure J96.[address] R93.89 COVID-19 U07.1 Obesity E66.9
[2023-07-31] MEDS: REMDESIVIR 100 MG in SODIUM CHLORIDE 0.9% 230 ML IV SCH (11:50)
[2023-07-31] MEDS: guaiFENesin 600 MG TABCR PO SCH ×2 (11:51→22:03)
--- NOTE | 2023-07-31 16:49 | Hospitalist Progress Note ---
Date of Service July 31, 2023 Assessment & Plan (1) Acute hypoxemic respiratory failure: Plan: per 58-year-old female past med significant for cough variant asthma currently not on any inhalers presents with cough and shortness of breath and found to have COVID requiring 10 L oxygen. Acute hypoxemic respiratory failure Secondary to COVID 19 Pneumonia, Asthma Exacerbation Requiring 10 L oxygen Last COVID booster was in March 2022 DuoNebs QID and as needed IV Solu-Medrol 40 mg 3 times daily IV remdesivir and follow remdesivir labs COVID precautions Pulmonary consult Close monitoring telemetry 07/30 CT chest: 1. There is no evidence of pulmonary embolus in the main, lobar, or segmental pulmonary arteries. 2. Cardiomegaly. 3. Dependent consolidation at both lung bases could represent atelectasis and/or pneumonia. Clinical correlation will be required and radiographic follow-up to resolution is recommended. 4. Additional findings as above. Tolerating CPAP Seems to be improving this morning although still requires 10 to 15 L of O2 via nonrebreather Continue remdesivir Continue Solu-Medrol 40 mg 3 times daily Continue CPAP Continue flutter valve, sinus parameter On Lovenox subcu for DVT prophylaxis Pulmonary service consulted 07/31 Clinically slightly improving Continue Solu-Medrol twice daily, continue severe, azithromycin Continue Brovana and Perforomist nebs CPAP at night Flutter valve, incentive spirometer encouraged Lovenox for DVT prophylaxis Pulm on board DVT prophylaxis Lovenox Disposition telemetry floor Full code plan of care discussed with patient and her Erlin in detail and at length all questions answered they are understanding, agreeable, comfortable with the plan of care Admission and Anticipated Discharge Date Admission Date: July 29, 2023 Subjective Follow-up for COVID-19 pneumonia, hypoxia, etc. Seen resting in bed, comfortable, not in distress Still on 8 to 12 L of OxyMask States she feels somewhat better today compared to yesterday in terms of breathing Still desaturates easily with minimal movement Has some dry cough No chest pain No other new symptom Review of Systems Review of Systems: all noted and negative except for above Physical Exam Physical Exam: General- oriented x 3, not in distress, speaks in sentences with no effort or a ccessory muscle use Eyes- anicteric Neck- no JVD Lungs- clear breath sounds bilaterally, no wheezing, no crackles Heart- normal rate, regular rhythm; no murmurs Abdomen- normal bowel sounds, nondistended, soft, nontender Extremities- no pretibial edema, no calf tenderness Neuro- alert, oriented x 3; no gross focal neurologic deficits Skin- warm & dry Results & Data Results & Data Vital Signs (Past 12 Hours) Vital Signs Temp Pulse Pulse Pulse Resp BP BP 07/31/23 15:51 76 18 07/31/23 15:16 36.6 C 79 23 137/80 07/31/23 11:47 74 20 07/31/23 11:43 36.8 C 71 23 111/61 07/31/23 10:08 07/31/23 07:44 37.1 C 65 20 109/68 07/31/23 07:26 59 L 18 07/31/23 07:15 69 07/31/23 05:59 Pulse Ox O2 Del Method O2 Flow Rate 07/31/23 15:51 92 Oxymask 6 07/31/23 15:16 90 Non-rebreather 6 07/31/23 11:47 92 Oxymask 8 07/31/23 11:43 94 CPAP 07/31/23 10:08 Oxymask 8 07/31/23 07:44 94 Oxymask 12 07/31/23 07:26 94 Oxymask 8 07/31/23 07:15 07/31/23 05:59 95 Oxymask 12 all noted and reviewed including below
[2023-07-31] MEDS: LORazepam 0.5 MG TAB PO PRN (22:02)
[2023-08-01] MEDS: guaiFENesin/CODEINE 100MG/10MG 5ML UDC PO SCH ×2 (04:07→11:43)
[2023-08-01] MEDS: ENOXAPARIN INJ 40 MG/0.4 ML SYR SQ SCH (06:15)
[2023-08-01] MEDS: ACETAMINOPHEN 325 MG TAB PO SCH ×4 (06:15→21:42)
[2023-08-01] MEDS: ALBUT/IPRATROP 3MG/0.5MG NEB 3 ML VIAL NEB SCH ×4 (07:21→20:34)
[2023-08-01] MEDS: BUDESONIDE 0.25 MG/2 ML VIAL (PULMICORT) NEB SCH ×2 (07:21→19:44)
[2023-08-01] MEDS: FORMOTEROL 20 MCG/2 ML VIAL INH SCH ×2 (07:21→19:44)
[2023-08-01 07:43] LABS: Creatinine Clr Calc Pharmacy 93.8 ml/min
--- NOTE | 2023-08-01 08:45 | Pulmonology Progress Note ---
Date of Service August 01, 2023 Assessment & Plan (1) Acute hypoxemic respiratory failure: (2) Abnormal chest CT: (3) COVID-19: (4) Obesity: Plan CTA chest 07/29/2023 personally reviewed: Elevated left hemidiaphragm Dependent atelectasis versus consolidative process appreciated bilateral lower lobes No other clear lung infiltrate appreciated Cardiomegaly No significant mediastinal lymphadenopathy --Acute hypoxic respiratory failure Secondary to multilobar COVID-19 pneumonia Cannot rule out superimposed bacterial infection COVID-19 PCR positive CRP 2.85 Procalcitonin negative Continue with O2 supplementation to keep oxygen saturation between 90-92%. Awake proning will be helpful Continue with incentive spirometry Continue with flutter valve. 100 proning would also be beneficial Recommend patient to be kept euvolemic to negative balance --Asthma exacerbation Likely secondary to COVID-19 pneumonia Continue with steroids and inhaled bronchodilators -- Obesity with probable EDUARDO Trial of PAP nightly and as needed shortness of breath Plan: I will add Flonase nasal spray to patient's regimen Continue with flutter valve as well as incentive spirometry Antitussive medication to prevent coughing fit Patient is actively proning, continue with Continue with CPAP nightly and as needed shortness of breath Continue with Solu-Medrol to 40 mg twice daily Continue with Brovana and budesonide nebulized Keep O2 saturation between 90-92% Case was discussed with RN and Dr. Sutton Please note the above document was generated using voice recognition software. It may contain grammatical, syntax or spelling errors.Any formal questions or concerns about the content, text or information contained within the body of this dictation should be directly addressed to the provider for clarification. Admission and Anticipated Discharge Date Admission Date: July 29, 2023 Subjective Patient seen and examined at bedside. No acute distress, no adverse events overnight Patient was saturating 93-94% on 8 L oxy mask. I decrease it to 7 L as she was still able to maintain saturation 92-93% She has been using her CPAP overnight. Today I noticed that she was coughing more while talking compared to yesterday Denied any fever or chills Overall she stated that she is feeling the same compared to yesterday Denies any diarrhea Review of Systems 2 Review of Systems: All systems reviewed & are unremarkable except as noted in Subjective Physical Exam 2 Physical Exam: Constitutional: No acute distress HEENT: EOMI, PERRLA Respiratory system: Decreased air entry bilaterally, no rhonchi, minimal wheeze, positive crackles bilateral lower lobes CVS: S1-S2 positive, no murmurs or gallops Abdomen: Soft, nontender, nondistended, positive bowel sounds x4, obese Extremities: +2 pulses bilaterally radialis/ dorsalis pedis, no cyanosis, no edema Neuro: Awake alert oriented x3 Psych: Normal mood and affect G/U: No Torre Skin: no rashes, warm and dry Lymphatic: no cervical or axillary lymphadenopathy Results & Data Results & Data Vital Signs (Past 12 Hours) Vital Signs Temp Pulse Pulse Resp BP Pulse Ox O2 Del Method 08/01/23 08:02 66 08/01/23 07:42 36.4 C L 80 18 121/81 92 Oxymask 08/01/23 07:22 86 18 Oxymask 08/01/23 03:24 36.5 C 68 20 105/61 92 Oxymask 07/31/23 23:56 36.6 C 77 22 132/79 94 BiPAP 07/31/23 23:10 69 22 93 O2 Flow Rate FiO2 08/01/23 08:02 08/01/23 07:42 6 08/01/23 07:22 97 08/01/23 03:24 8 07/31/23 23:56 50 07/31/23 23:10 50 Laboratory Results 07/30/23 07:08 08/01/23 06:35 PG Care Time/CCT Total # of Minutes Spent Total Time Spent with Patient: Total time spent is greater than 50% in coordination of care (as documented) at patient's floor/unit and/or counseling patient: Coding Level of Care Code 86060 SUB INP/OBS CARE 3/50MIN Diagnoses Acute hypoxemic respiratory failure J96.[address] R93.89 COVID-19 U07.1 Obesity E66.9
[2023-08-01] MEDS: guaiFENesin 600 MG TABCR PO SCH ×2 (09:04→21:35)
[2023-08-01] MEDS: AZITHROMYCIN 250 MG TAB PO SCH (09:05)
[2023-08-01] MEDS: methylPREDNISolone 40 MG in SYRINGE 0 ML IV SCH ×2 (09:05→21:38)
[2023-08-01] MEDS: BENZONATATE 100 MG CAPSULE PO SCH ×2 (09:10→15:37)
[2023-08-01] MEDS: REMDESIVIR 100 MG in SODIUM CHLORIDE 0.9% 230 ML IV SCH (11:43)
[2023-08-01] MEDS ORDERED: BENZONATATE 100 MG CAPSULE PO PRN (14:49)
[2023-08-01] MEDS ORDERED: guaiFENesin/CODEINE 100MG/10MG 5ML UDC PO PRN (14:49)
--- NOTE | 2023-08-01 15:51 | XRay Report ---
SINGLE VIEW CHEST CLINICAL HISTORY: Follow-up Covid pneumonia. FINDINGS: An AP, portable, upright chest radiograph is compared to study dated 07/28/2023 and correla marian with chest CT dated 07/29/2023. The heart is enlarged. The pulmonary vasculature is noncongested. Bibasilar consolidation has not appreciably changed. No large pleural effusion or pneumothorax is se en. The skeletal structures are osteopenic. The bony thorax is grossly intact. IMPRESSION: 1. Cardiomegaly without radiographic evidence of congestive failure. 2. Bibasilar consolidation has not appreciably changed from recent prior studies. ACT 112: Negative or not required by law. Electronically signed by: Darien Quinn M.D. 08/01/2023 3:50 PM
--- NOTE | 2023-08-01 16:11 | Hospitalist Progress Note ---
Date of Service August 01, 2023 Assessment & Plan (1) Acute hypoxemic respiratory failure: Plan: per 58-year-old female past med significant for cough variant asthma currently not on any inhalers presents with cough and shortness of breath and found to have C OVID requiring 10 L oxygen. Acute hypoxemic respiratory failure Secondary to COVID 19 Pneumonia, Asthma Exacerbation Requiring 10 L oxygen Last COVID booster was in March 2022 DuoNebs QID and as needed IV Solu-Medrol 40 mg 3 times daily IV remdesivir and follow remdesivir labs COVID precautions Pulmonary consult Close monitoring telemetry 07/30 CT chest: 1. There is no evidence of pulmonary embolus in the main, lobar, or segmental pulmonary arteries. 2. Cardiomegaly. 3. Dependent consolidation at both lung bases could represent atelectasis and/or pneumonia. Clinical correlation will be required and radiographic follow-up to resolution is recommended. 4. Additional findings as above. Tolerating CPAP Seems to be improving this morning although still requires 10 to 15 L of O2 via nonrebreather Continue remdesivir Continue Solu-Medrol 40 mg 3 times daily Continue CPAP Continue flutter valve, sinus parameter On Lovenox subcu for DVT prophylaxis Pulmonary service consulted 07/31 Clinically slightly improving Continue Solu-Medrol twice daily, continue severe, azithromycin Continue Brovana and Perforomist nebs CPAP at night Flutter valve, incentive spirometer encouraged Lovenox for DVT prophylaxis Pulm on board 08/01 Gradually improving Currently at 8 L of OxyMask Add hypertonic saline Continue Solu-Medrol twice a day, remdesivir, azithromycin Continue current nebs CPAP Discussed with Dr. Vicente DVT prophylaxis Lovenox Disposition telemetry floor Full code plan of care discussed with patient and her Erlin in detail and at length all questions answered they are understanding, agreeable, comfortable with the plan of care Admission and Anticipated Discharge Date Admission Date: July 29, 2023 Subjective ff up for COVID-19 pneumonia, hypoxic respite failure, etc. seen resting in bed, comfortable on 6 L via oxymask States she feels okay today, somewhat similar to yesterday Able to speak with less effort Still having some dyspnea with movement, bouts of cough No chest pain No other new symptom Patient's at the bedside Review of Systems Review of Systems: all noted and negative except for above Physical Exam Physical Exam: all noted and negative except for above Results & Data Results & Data Vital Signs (Past 12 Hours) Vital Signs Temp Pulse Pulse Pulse Resp BP Pulse Ox 08/01/23 15:24 84 18 94 08/01/23 15:17 36.8 C 70 18 118/68 91 08/01/23 14:00 08/01/23 12:02 36.3 C L 64 18 127/79 93 08/01/23 10:38 84 18 97 08/01/23 08:02 66 08/01/23 07:42 08/01/23 07:42 36.4 C L 80 18 121/81 92 08/01/23 07:22 86 18 Pulse Ox O2 Del Method O2 Del Method O2 Flow Rate O2 Flow Rate FiO2 08/01/23 15:24 Oxymask 8 08/01/23 15:17 Oxymask 6 08/01/23 14:00 92 Oxymask 6 08/01/23 12:02 Oxymask 6 08/01/23 10:38 CPAP 50 08/01/23 08:02 08/01/23 07:42 Oxymask 6 08/01/23 07:42 Oxymask 6 08/01/23 07:22 Oxymask 97 all noted and reviewed including below
[2023-08-01] MEDS: SODIUM CHLOR 7% 4 ML NEB NEB SCH (19:44)
[2023-08-01] MEDS: FLUTICASONE PROPIONATE NA SPR 16 GM BTL SCH (21:30)
[2023-08-01 22:38] LABS: Est GFR (African American) 90.8 ml/min; Est GFR (Non-African American) 78.3 ml/min
[2023-08-02] MEDS: ACETAMINOPHEN 325 MG TAB PO SCH ×3 (05:10→18:15)
[2023-08-02] MEDS: ENOXAPARIN INJ 40 MG/0.4 ML SYR SQ SCH (05:11)
[2023-08-02 06:14] LABS: Alanine Aminotransferase 26 U/L (7-52); Aspartate Aminotransferase 19 U/L (13-39); C Reactive Protein < 0.50 mg/dl (0-0.5)
[2023-08-02] MEDS: BUDESONIDE 0.25 MG/2 ML VIAL (PULMICORT) NEB SCH ×2 (07:35→19:44)
[2023-08-02] MEDS: SODIUM CHLOR 7% 4 ML NEB NEB SCH ×2 (07:35→19:44)
[2023-08-02] MEDS: FORMOTEROL 20 MCG/2 ML VIAL INH SCH ×2 (07:35→19:43)
--- NOTE | 2023-08-02 08:30 | Pulmonology Progress Note ---
Date of Service August 02, 2023 Assessment & Plan (1) Acute hypoxemic respiratory failure: (2) Abnormal chest CT: (3) COVID-19: (4) Obesity: Plan CTA chest 07/29/2023 personally reviewed: Elevated left hemidiaphragm Dependent atelectasis versus consolidative process appreciated bilateral lower lobes No other clear lung infiltrate appreciated Cardiomegaly No significant mediastinal lymphadenopathy --Acute hypoxic respiratory failure Secondary to multilobar COVID-19 pneumonia Cannot rule out superimposed bacterial infection COVID-19 PCR positive CRP 2.85 Procalcitonin negative Continue with O2 supplementation to keep oxygen saturation between 90-92%. Awake proning will be helpful Continue with incentive spirometry Continue with flutter valve. 100 proning would also be beneficial Recommend patient to be kept euvolemic to negative balance --Asthma exacerbation Likely secondary to COVID-19 pneumonia Continue with steroids and inhaled bronchodilators -- Obesity with probable EDUARDO Trial of PAP nightly and as needed shortness of breath Plan: In/out: -981, urine output 4951, -1.2 L since coming to the hospital Continue with flutter valve as well as incentive spirometry Antitussive medication to prevent coughing fit Continue with CPAP nightly and as needed shortness of breath Recommend out of bed to chair Continue with Solu-Medrol to 40 mg twice daily Continue with Brovana and budesonide nebulized Keep O2 saturation between 90-92% Case was discussed with RN and Dr. Sutton Please note the above document was generated using voice recognition software. It may contain grammatical, syntax or spelling errors.Any formal questions or concerns about the content, text or information contained within the body of this dictation should be directly addressed to the provider for clarification. Admission and Anticipated Discharge Date Admission Date: July 29, 2023 Subjective Patient seen and examined at bedside. No acute distress, no adverse events overnight Did use her CPAP overnight Was saturating 93-94% on 8 L oxy mask Still has bouts of coughing when she is talking. Denies any chest pain. Still says that it is difficult for her to take a deep breath in without coughing She is using incentive spirometry and going up to almost 1500 mL No nausea or vomiting Fair appetite, having bowel movement Review of Systems 2 Review of Systems: All systems reviewed & are unremarkable except as noted in Subjective Physical Exam 2 Physical Exam: Constitutional: No acute distress HEENT: EOMI, PERRLA Respiratory system: Decreased air entry bilaterally, no rhonchi, minimal wheeze, positive crackles bilateral lower lobes CVS: S1-S2 positive, no murmurs or gallops Abdomen: Soft, nontender, nondistended, positive bowel sounds x4, obese Extremities: +2 pulses bilaterally radialis/ dorsalis pedis, no cyanosis, no edema Neuro: Awake alert oriented x3 Psych: Normal mood and affect G/U: No Torre Skin: no rashes, warm and dry Lymphatic: no cervical or axillary lymphadenopathy Results & Data Results & Data Vital Signs (Past 12 Hours) Vital Signs Temp Pulse Pulse Resp BP BP Pulse Ox 08/02/23 07:37 65 15 94 08/02/23 07:12 36.3 C L 66 20 130/78 93 08/02/23 04:13 67 24 93 08/02/23 03:35 36.3 C L 68 20 116/65 94 08/02/23 00:30 64 26 H 94 08/01/23 22:33 36.4 C L 64 16 100/61 99 O2 Del Method O2 Flow Rate FiO2 08/02/23 07:37 Oxymask 6.5 08/02/23 07:12 Oxymask 3.0 08/02/23 04:13 45 08/02/23 03:35 CPAP 08/02/23 00:30 45 08/01/23 22:33 CPAP Laboratory Results 07/30/23 07:08 08/01/23 06:35 PG Care Time/CCT Total # of Minutes Spent Total Time Spent with Patient: Total time spent is greater than 50% in coordination of care (as documented) at patient's floor/unit and/or counseling patient: Coding Level of Care Code 67162 SUB INP/OBS CARE 2/35MIN Diagnoses Acute hypoxemic respiratory failure J96.[address] R93.89 COVID-19 U07.1 Obesity E66.9
[2023-08-02] MEDS: AZITHROMYCIN 250 MG TAB PO SCH (09:30)
[2023-08-02] MEDS: guaiFENesin 600 MG TABCR PO SCH (09:30)
[2023-08-02] MEDS: methylPREDNISolone 40 MG in SYRINGE 0 ML IV SCH ×2 (09:31→22:01)
[2023-08-02] MEDS: FLUTICASONE PROPIONATE NA SPR 16 GM BTL SCH ×2 (09:32→22:00)
[2023-08-02 10:32] LABS: Basophils # (auto) 0.04 K/uL (0.00-0.20); Basophils % (auto) 0.4 %; Hemoglobin 12.8 g/dl (12.0-16.0); Immature Granulocytes # (auto) 0.36 K/uL (0.01-0.20); Immature Granulocytes % (auto) 3.3 %; Lymphocytes # (auto) 1.35 K/uL (1.20-3.40); Lymphocytes % (auto) 12.4 %; Mean Corpuscular Hemoglobin 30.3 pg (25.0-34.0); Mean Corpuscular Hgb Conc 32.8 g/dL (32.0-36.0); Mean Corpuscular Volume 92.2 fL (80.0-100.0); Mean Platelet Volume 10.6 fL (9.4-12.4); Monocytes # (auto) 0.65 K/uL (0.11-0.59); Neutrophils # (auto) 8.45 K/uL (1.40-6.50); Neutrophils % (auto) 77.9 %; Platelet Count 233 K/uL (130-400); RDW Coefficient of Variation 13.1 % (11.5-14.5); RDW Standard Deviation 44.1 fL (36.4-46.3); Red Blood Count 4.23 M/uL (4.20-5.40); White Blood Count 10.85 K/ul (4.8-10.8)
[2023-08-02 10:41] LABS: Albumin Globulin Ratio 1.4 (0.9-2); Albumin Level 3.7 gm/dl (3.4-5.0); Alkaline Phosphatase 53 U/L (34-104); Anion Gap 9 (3-11); Bilirubin,Total 0.4 mg/dl (0.2-1.0); Blood Urea Nitrogen 19 mg/dl (6-23); Calcium 8.2 mg/dl (8.6-10.3); Carbon Dioxide 23 mmol/L (21-32); Chloride 108 mmol/L (98-107); Creatinine Clr Calc Pharmacy 100.2 ml/min; Est GFR (African American) 99.5 ml/min; Est GFR (Non-African American) 85.9 ml/min; Globulin 2.7 gm/dl (2.5-4.0); Glucose 121 mg/dl (70-99(Fasting)); Sodium 140 mmol/L (136-145); Total Protein 6.4 gm/dl (6.0-8.3)
[2023-08-02] MEDS: ALBUT/IPRATROP 3MG/0.5MG NEB 3 ML VIAL NEB SCH ×3 (11:27→15:31)
[2023-08-02] MEDS: REMDESIVIR 100 MG in SODIUM CHLORIDE 0.9% 230 ML IV SCH (11:55)
[2023-08-02] MEDS ORDERED: ALBUT/IPRATROP 3MG/0.5MG NEB 3 ML VIAL NEB PRN (15:17)
[2023-08-02] MEDS: guaiFENesin/DEXTROM SYRUP 200MG/20MG 10ML UDC PO SCH ×2 (16:32→22:01)
--- NOTE | 2023-08-02 18:55 | Hospitalist Progress Note ---
Date of Service August 02, 2023 delayed entry date of service noted above Assessment & Plan (1) Acute hypoxemic respiratory failure: Plan: per 58-year-old female past med significant for cough variant asthma currently not on any inhalers presents with cough and shortness of breath and found to have COVID requiring 10 L oxygen. Acute hypoxemic respiratory failure Secondary to COVID 19 Pneumonia, Asthma Exacerbation Requiring 10 L oxygen Last COVID booster was in March 2022 DuoNebs QID and as needed IV Solu-Medrol 40 mg 3 times daily IV remdesivir and follow remdesivir labs COVID precautions Pulmonary consult Close monitoring telemetry 07/30 CT chest: 1. There is no evidence of pulmonary embolus in the main, lobar, or segmental pulmonary arteries. 2. Cardiomegaly. 3. Dependent consolidation at both lung bases could represent atelectasis and/or pneumonia. Clinical correlation will be required and radiographic follow-up to resolution is recommended. 4. Additional findings as above. Tolerating CPAP Seems to be improving this morning although still requires 10 to 15 L of O2 via nonrebreather Continue remdesivir Continue Solu-Medrol 40 mg 3 times daily Continue CPAP Continue flutter valve, sinus parameter On Lovenox subcu for DVT prophylaxis Pulmonary service consulted 07/31 Clinically slightly improving Continue Solu-Medrol twice daily, continue severe, azithromycin Continue Broangeline and Perforomist nebs CPAP at night Flutter valve, incentive spirometer encouraged Lovenox for DVT prophylaxis Pulm on board 08/01 Gradually improving Currently at 8 L of OxyMask Add hypertonic saline Continue Solu-Medrol twice a day, remdesivir, azithromycin Continue current nebs CPAP Discussed with Dr. Vicente 08/02 improving continue to wean off o2 continue CPAP continue present regimen DVT prophylaxis Lovenox Disposition telemetry floor Full code plan of care discussed with patient and her Erlin in detail and at length all questions answered they are understanding, agreeable, comfortable with the plan of care Admission and Anticipated Discharge Date Admission Date: July 29, 2023 Subjective ff up for covid 19 pneumonia, etc seen resting in bed, not in distress on oxymask continues to improve gradually breathing is improving still has cough no other new symptoms Review of Systems Review of Systems: all noted and negative except for above Physical Exam Physical Exam: General- oriented x 3, not in distress, speaks in sentences with no effort or accessory muscle use Eyes- anicteric Neck- no JVD Lungs- clear breath sounds bilaterally, no wheezing Heart- normal rate, regular rhythm; no murmurs Abdomen- normal bowel sounds, nondistended, soft, nontender Extremities- no pretibial edema, no calf tenderness Neuro- alert, oriented x 3; no gross focal neurologic deficits Skin- warm & dry Results & Data Results & Data Vital Signs (Past 12 Hours) Vital Signs Temp Pulse Resp BP Pulse Ox O2 Del Method O2 Del Method 08/02/23 18:49 36.7 C 69 18 114/72 95 Oxymask 08/02/23 14:00 Oxymask 08/02/23 11:42 65 12 92 Oxymask 08/02/23 10:58 36.8 C 65 18 107/70 92 Oxymask 08/02/23 08:00 Oxymask 08/02/23 07:37 65 15 94 Oxymask 08/02/23 07:12 36.3 C L 66 20 130/78 93 Oxymask O2 Flow Rate 08/02/23 18:49 6 08/02/23 14:00 08/02/23 11:42 7 08/02/23 10:58 7 08/02/23 08:00 08/02/23 07:37 6.5 08/02/23 07:12 3.0 all noted and reviewed including below
[2023-08-03] MEDS: ACETAMINOPHEN 325 MG TAB PO SCH ×4 (02:48→17:12)
[2023-08-03] MEDS: guaiFENesin/DEXTROM SYRUP 200MG/20MG 10ML UDC PO SCH ×4 (03:46→20:52)
[2023-08-03] MEDS: ENOXAPARIN INJ 40 MG/0.4 ML SYR SQ SCH (05:43)
[2023-08-03] MEDS: BUDESONIDE 0.25 MG/2 ML VIAL (PULMICORT) NEB SCH ×2 (07:25→19:05)
[2023-08-03] MEDS: FORMOTEROL 20 MCG/2 ML VIAL INH SCH ×2 (07:25→19:05)
[2023-08-03] MEDS: SODIUM CHLOR 7% 4 ML NEB NEB SCH ×2 (07:25→19:05)
--- NOTE | 2023-08-03 08:11 | Pulmonology Progress Note ---
Date of Service August 03, 2023 Assessment & Plan (1) Acute hypoxemic respiratory failure: (2) Abnormal chest CT: (3) COVID-19: (4) Obesity: Plan CTA chest 07/29/2023 personally reviewed: Elevated left hemidiaphragm Dependent atelectasis versus consolidative process appreciated bilateral lower lobes No other clear lung infiltrate appreciated Cardiomegaly No significant mediastinal lymphadenopathy --Acute hypoxic respiratory failure Secondary to multilobar COVID-19 pneumonia Cannot rule out superimposed bacterial infection COVID-19 PCR positive CRP 2.85 Procalcitonin negative Continue with O2 supplementation to keep oxygen saturation between 90-92%. Awake proning will be helpful Continue with incentive spirometry Continue with flutter valve. 100 proning would also be beneficial Recommend patient to be kept euvolemic to negative balance --Asthma exacerbation Likely secondary to COVID-19 pneumonia Continue with steroids and inhaled bronchodilators -- Obesity with probable EDUARDO Trial of PAP nightly and as needed shortness of breath Plan: In/out: -981, urine output 4951, -1.2 L since coming to the hospital Continue with flutter valve as well as incentive spirometry Antitussive medication to prevent coughing fit Continue with CPAP nightly and as needed shortness of breath Recommend out of bed to chair Continue with Solu-Medrol to 40 mg twice daily Continue with Brovana and budesonide nebulized Keep O2 saturation between 90-92% On discharge would recommend Symbicort 80-4.5 mcg 2 puffs twice a day along with as needed albuterol Case was discussed with RN and Dr. Sutton No further recommendation from pulmonary perspective, will sign off Please call directly with any questions Please note the above document was generated using voice recognition software. It may contain grammatical, syntax or spelling errors.Any formal questions or concerns about the content, text or information contained within the body of this dictation should be directly addressed to the provider for clarification. Admission and Anticipated Discharge Date Admission Date: July 29, 2023 Subjective Patient seen and examined at bedside. No acute distress, no evidence overnight She was on 5 and half liters oxygen at the time of examination saturating 93-94% Today she looked better. She was not coughing that much while talking to me Used her CPAP overnight Denies any chest pain Did have bowel movement. One was loose. Able to bring up clear phlegm. No hemoptysis Fair appetite Review of Systems 2 Review of Systems: All systems reviewed & are unremarkable except as noted in Subjective Physical Exam 2 Physical Exam: Constitutional: No acute distress HEENT: EOMI, PERRLA Respiratory system: Decreased air entry bilaterally, no rhonchi, minimal wheeze, positive crackles bilateral lower lobes CVS: S1-S2 positive, no murmurs or gallops Abdomen: Soft, nontender, nondistended, positive bowel sounds x4, obese Extremities: +2 pulses bilaterally radialis/ dorsalis pedis, no cyanosis, no edema Neuro: Awake alert oriented x3 Psych: Normal mood and affect G/U: No Torre Skin: no rashes, warm and dry Lymphatic: no cervical or axillary lymphadenopathy Results & Data Results & Data Vital Signs (Past 12 Hours) Vital Signs Temp Pulse Resp BP Pulse Ox O2 Del Method O2 Flow Rate 08/03/23 07:45 CPAP 08/03/23 07:28 84 15 93 Oxymask 7 08/03/23 07:13 36.8 C 66 20 131/87 95 CPAP 08/03/23 03:51 36.9 C 62 18 116/73 95 CPAP 6 08/02/23 23:11 36.8 C 64 18 91/49 L 97 Oxymask 6 Laboratory Results 08/02/23 09:45 PG Care Time/CCT Total # of Minutes Spent Total Time Spent with Patient: Total time spent is greater than 50% in coordination of care (as documented) at patient's floor/unit and/or counseling patient: Coding Level of Care Code 10268 SUB INP/OBS CARE 2/35MIN Diagnoses Acute hypoxemic respiratory failure J96.[address] R93.89 COVID-19 U07.1 Obesity E66.9
[2023-08-03 08:18] LABS: Albumin Globulin Ratio 1.4 (0.9-2); Albumin Level 3.5 gm/dl (3.4-5.0); BUN Creatinine Ratio 20.3 (10-20); Bilirubin,Total 0.5 mg/dl (0.2-1.0); Creatinine Clr Calc Pharmacy 103.1 ml/min; Est GFR (African American) 102.8 ml/min; Est GFR (Non-African American) 88.7 ml/min; Globulin 2.5 gm/dl (2.5-4.0); Potassium 4.3 mmol/L (3.5-5.1)
[2023-08-03] MEDS: AZITHROMYCIN 250 MG TAB PO SCH (09:04)
[2023-08-03] MEDS: FLUTICASONE PROPIONATE NA SPR 16 GM BTL SCH ×2 (09:04→20:51)
[2023-08-03] MEDS: methylPREDNISolone 40 MG in SYRINGE 0 ML IV SCH (09:05)
--- NOTE | 2023-08-03 18:26 | Hospitalist Progress Note ---
Date of Service August 03, 2023 Assessment & Plan (1) Acute hypoxemic respiratory failure: Plan: per 58-year-old female past med significant for cough variant asthma currently not on any inhalers presents with cough and shortness of breath and found to have C OVID requiring 10 L oxygen. Acute hypoxemic respiratory failure Secondary to COVID 19 Pneumonia, Asthma Exacerbation Requiring 10 L oxygen Last COVID booster was in March 2022 DuoNebs QID and as needed IV Solu-Medrol 40 mg 3 times daily IV remdesivir and follow remdesivir labs COVID precautions Pulmonary consult Close monitoring telemetry 07/30 CT chest: 1. There is no evidence of pulmonary embolus in the main, lobar, or segmental pulmonary arteries. 2. Cardiomegaly. 3. Dependent consolidation at both lung bases could represent atelectasis and/or pneumonia. Clinical correlation will be required and radiographic follow-up to resolution is recommended. 4. Additional findings as above. Tolerating CPAP Seems to be improving this morning although still requires 10 to 15 L of O2 via nonrebreather Continue remdesivir Continue Solu-Medrol 40 mg 3 times daily Continue CPAP Continue flutter valve, sinus parameter On Lovenox subcu for DVT prophylaxis Pulmonary service consulted 07/31 Clinically slightly improving Continue Solu-Medrol twice daily, continue severe, azithromycin Continue Brovana and Perforomist nebs CPAP at night Flutter valve, incentive spirometer encouraged Lovenox for DVT prophylaxis Pulm on board 08/01 Gradually improving Currently at 8 L of OxyMask Add hypertonic saline Continue Solu-Medrol twice a day, remdesivir, azithromycin Continue current nebs CPAP Discussed with Dr. Vicente 08/03 Continues to improve Currently on 5 L of OxyMask Continue Solu-Medrol, nebs Completed remdesivir course Continue azithromycin CPAP at while sleeping Discussed with Dr. Vicente DVT prophylaxis Lovenox Disposition telemetry floor Full code plan of care discussed with patient and her Erlin in detail and at length all questions answered they are understanding, agreeable, comfortable with the plan of care Admission and Anticipated Discharge Date Admission Date: July 29, 2023 Subjective Follow-up for COVID-19, etc. Seen sitting up in bed, comfortable, not in distress On 5 L of O2 States she continues to feel improved gradually every day Left shortness of breath with exertion No chest pain, palpitations, dizziness No other new symptoms Review of Systems Review of Systems: all noted and negative except for above Physical Exam Physical Exam: General- oriented x 3, not in distress, speaks in sentences with no effort or accessory muscle use Eyes- anicteric Neck- no JVD Lungs- clear BS bilaterally, no rales/wheezes Heart- normal rate, regular rhythm; no murmurs Abdomen- normal bowel sounds, nondistended, soft, no tenderness Extremities- no pretibial edema, no calf tenderness Neuro- alert, oriented x 3; no gross focal neurologic deficits Skin- warm & dry Results & Data Results & Data Vital Signs (Past 12 Hours) Vital Signs Temp Pulse Pulse Resp BP Pulse Ox Pulse Ox 08/03/23 15:15 36.7 C 66 18 125/75 93 08/03/23 14:00 92 08/03/23 11:20 36.5 C 71 18 118/76 93 08/03/23 10:44 36.4 C L 74 18 137/83 93 08/03/23 07:45 08/03/23 07:28 84 15 93 08/03/23 07:13 36.8 C 66 20 131/87 95 O2 Del Method O2 Del Method O2 Flow Rate O2 Flow Rate 08/03/23 15:15 Oxymask 5.5 08/03/23 14:00 Oxymask 6 08/03/23 11:20 Oxymask 6.5 08/03/23 10:44 Oxymask 6.5 08/03/23 07:45 CPAP 08/03/23 07:28 Oxymask 7 08/03/23 07:13 CPAP all noted and reviewed including below
[2023-08-04] MEDS: guaiFENesin/DEXTROM SYRUP 200MG/20MG 10ML UDC PO SCH ×4 (04:02→21:03)
[2023-08-04] MEDS: ENOXAPARIN INJ 40 MG/0.4 ML SYR SQ SCH (05:59)
[2023-08-04] MEDS: ACETAMINOPHEN 325 MG TAB PO SCH ×4 (05:59→18:11)
[2023-08-04] MEDS: BUDESONIDE 0.25 MG/2 ML VIAL (PULMICORT) NEB SCH ×2 (06:59→19:20)
[2023-08-04] MEDS: FORMOTEROL 20 MCG/2 ML VIAL INH SCH ×2 (06:59→19:21)
[2023-08-04] MEDS: SODIUM CHLOR 7% 4 ML NEB NEB SCH ×2 (06:59→19:21)
[2023-08-04 07:16] LABS: Albumin Globulin Ratio 1.4 (0.9-2); Albumin Level 3.3 gm/dl (3.4-5.0); BUN Creatinine Ratio 19.2 (10-20); Bilirubin,Total 0.5 mg/dl (0.2-1.0); Creatinine Clr Calc Pharmacy 72.3 ml/min; Est GFR (African American) 68.1 ml/min; Est GFR (Non-African American) 58.8 ml/min; Globulin 2.3 gm/dl (2.5-4.0); Potassium 3.7 mmol/L (3.5-5.1); Total Protein 5.6 gm/dl (6.0-8.3)
[2023-08-04] MEDS: FLUTICASONE PROPIONATE NA SPR 16 GM BTL SCH ×2 (09:03→21:02)
[2023-08-04] MEDS: methylPREDNISolone 40 MG in SYRINGE 0 ML IV SCH (09:03)
[2023-08-04] MEDS ORDERED: ACETAMINOPHEN 325 MG TAB PO PRN (19:44)
--- NOTE | 2023-08-04 20:29 | Hospitalist Progress Note ---
Date of Service August 04, 2023 Assessment & Plan (1) COVID-19: (2) Acute hypoxemic respiratory failure: Plan: (1) Acute hypoxemic respiratory failure: Plan: per 58-year-old female past med significant for cough variant asthma currently not on any inhalers presents with cough and shortness of breath and found to have COVID requiring 10 L oxygen. Acute hypoxemic respiratory failure Secondary to COVID 19 Pneumonia, Asthma Exacerbation Requiring 10 L oxygen Last COVID booster was in March 2022 DuoNebs QID and as needed IV Solu-Medrol 40 mg 3 times daily IV remdesivir and follow remdesivir labs COVID precautions Pulmonary consult Close monitoring telemetry 07/30 CT chest: 1. There is no evidence of pulmonary embolus in the main, lobar, or segmental pulmonary arteries. 2. Cardiomegaly. 3. Dependent consolidation at both lung bases could represent atelectasis and/or pneumonia. Clinical correlation will be required and radiographic follow-up to resolution is recommended. 4. Additional findings as above. Tolerating CPAP Seems to be improving this morning although still requires 10 to 15 L of O2 via nonrebreather Continue remdesivir Continue Solu-Medrol 40 mg 3 times daily Continue CPAP Continue flutter valve, sinus parameter On Lovenox subcu for DVT prophylaxis Pulmonary service consulted 07/31 Clinically slightly improving Continue Solu-Medrol twice daily, continue severe, azithromycin Continue Brovana and Perforomist nebs CPAP at night Flutter valve, incentive spirometer encouraged Lovenox for DVT prophylaxis Pulm on board 08/01 Gradually improving Currently at 8 L of OxyMask Add hypertonic saline Continue Solu-Medrol twice a day, remdesivir, azithromycin Continue current nebs CPAP Discussed with Dr. Vicente 08/03 Continues to improve Currently on 5 L of OxyMask Continue Solu-Medrol, nebs Completed remdesivir course Continue azithromycin CPAP at while sleeping Discussed with Dr. Vicente 08/04 Clinically improving Now on 4 L Continue present regimen Monitor DVT prophylaxis Lovenox Disposition telemetry floor Full code plan of care discussed with patient and her Erlin in detail and at length all questions answered they are understanding, agreeable, comfortable with the plan of care Admission and Anticipated Discharge Date Admission Date: July 29, 2023 Subjective ff up for COVID 19 pneumonia, etc Seen resting in bed, comfortable, not in distress, on 4 L States she feels okay overall Less cough, no shortness of breath No other new symptoms Review of Systems Review of Systems: all noted and negative except for above Physical Exam Physical Exam: General- oriented x 3, not in distress, speaks in sentences with no effort or a ccessory muscle use Eyes- anicteric Neck- no JVD Lungs- clear breath sounds bilaterally, no rales/wheezes Heart- normal rate, regular rhythm; no murmurs Abdomen- normal bowel sounds, nondistended, soft, nontender Extremities- no pretibial edema, no calf tenderness Neuro- alert, oriented x 3; no gross focal neurologic deficits Skin- warm & dry Results & Data Results & Data Vital Signs (Past 12 Hours) Vital Signs Temp Pulse Pulse Pulse Resp BP Pulse Ox 08/04/23 20:19 08/04/23 20:00 08/04/23 19:23 77 18 95 08/04/23 19:00 36.7 C 78 20 113/80 95 08/04/23 15:25 36.5 C 70 19 113/78 95 08/04/23 15:09 71 08/04/23 10:55 36.7 C 69 18 110/67 96 08/04/23 09:33 Pulse Ox O2 Del Method O2 Del Method O2 Flow Rate O2 Flow Rate 08/04/23 20:19 Oxymask 4 08/04/23 20:00 94 Oxymask 4 08/04/23 19:23 Oxymask 4 08/04/23 19:00 Oxymask 4 08/04/23 15:25 Oxymask 4 08/04/23 15:09 08/04/23 10:55 CPAP 08/04/23 09:33 Oxymask 6 all noted and reviewed including below
[2023-08-05] MEDS: guaiFENesin/DEXTROM SYRUP 200MG/20MG 10ML UDC PO SCH ×4 (04:25→22:19)
[2023-08-05] MEDS: ENOXAPARIN INJ 40 MG/0.4 ML SYR SQ SCH (05:13)
[2023-08-05] MEDS: FORMOTEROL 20 MCG/2 ML VIAL INH SCH ×2 (06:52→19:07)
[2023-08-05] MEDS: BUDESONIDE 0.25 MG/2 ML VIAL (PULMICORT) NEB SCH ×2 (06:52→19:07)
[2023-08-05] MEDS: SODIUM CHLOR 7% 4 ML NEB NEB SCH ×2 (06:52→19:07)
[2023-08-05 08:04] LABS: Albumin Globulin Ratio 1.4 (0.9-2); Albumin Level 3.4 gm/dl (3.4-5.0); BUN Creatinine Ratio 20.3 (10-20); Bilirubin,Total 0.4 mg/dl (0.2-1.0); Calcium 8.3 mg/dl (8.6-10.3); Creatinine Clr Calc Pharmacy 95.1 ml/min; Est GFR (Non-African American) 81.9 ml/min; Globulin 2.4 gm/dl (2.5-4.0); Potassium 3.7 mmol/L (3.5-5.1); Total Protein 5.8 gm/dl (6.0-8.3)
[2023-08-05] MEDS: methylPREDNISolone 40 MG in SYRINGE 0 ML IV SCH (09:00)
[2023-08-05] MEDS: FLUTICASONE PROPIONATE NA SPR 16 GM BTL SCH ×2 (09:02→22:19)
--- NOTE | 2023-08-05 19:28 | Hospitalist Progress Note ---
Date of Service August 05, 2023 Assessment & Plan (1) COVID-19: (2) Acute hypoxemic respiratory failure: Plan: (1) Acute hypoxemic respiratory failure: Plan: per 58-year-old female past med significant for cough variant asthma currently not on any inhalers presents with cough and shortness of breath and found to have COVID requiring 10 L oxygen. ACUTE HYPOXEMIC RESPIRATORY FAILURE SECONDARY TO COVID 19 PNEUMONIA, ASTHMA EXACERBATION Requiring 10 L oxygen on admission Last COVID booster was in March 2022 Z[place]yka QID and as needed CT chest: 1. There is no evidence of pulmonary embolus in the main, lobar, or segmental pulmonary arteries. 2. Cardiomegaly. 3. Dependent consolidation at both lung bases could represent atelectasis and/or pneumonia. Clinical correlation will be required and radiographic follow-up to resolution is recommended. 4. Additional findings as above. Pulmonary service consulted Patient placed on Solu-Medrol 40 mg 3 times daily, Brovana, Perforomist, azithneva mycin Also placed on CPAP while sleeping Encouraged to do prone positioning Encourage flutter valve, assess parameter On Lovenox for DVT prophylaxis Patient gradually improved daily Has been weaning off oxygen from 10 L, now on 4 L via OxyMask Continue Pulmicort, Perforomist, hypertonic saline Flonase, guaifenesin with DM [id number] Transition from Solu-Medrol 40 mg daily to prednisone 40 mg daily in 1 to 2 days, then taper Per pulmonary, on discharge would recommend Symbicort 80-4.5 mcg 2 puffs twice a day along with as needed albuterol Hopefully patient may be discharged in 1 to 2 days, may need oxygen supplementation upon discharge Patient is to follow-up with exchange operator Dr Vicente in 1 to 2 weeks after discharge DVT prophylaxis Lovenox Disposition Patient lives at home with her Full code plan of care discussed with patient and her Erlin in detail and at length all questions answered they are understanding, agreeable, comfortable with the plan of care Admission and Anticipated Discharge Date Admission Date: July 29, 2023 Subjective Follow-up for COVID-19 multifocal pneumonia, hypoxic respiratory failure etc. Seen resting in bed, comfortable, not in distress Using CPAP States she feels improved day by day Breathing is improving, less cough No other new symptoms Review of Systems Review of Systems: all noted and negative except for above Physical Exam Physical Exam: General- oriented x 3, not in distress, speaks in sentences with no effort or accessory muscle use Eyes- anicteric Neck- no JVD Lungs- clear breath sounds bilaterally, no rales/wheezes Heart- normal rate, regular rhythm; no murmurs Abdomen- normal bowel sounds, nondistended, soft, nontender Extremities- no pretibial edema, no calf tenderness Neuro- alert, oriented x 3; no gross focal neurologic deficits Skin- warm & dry Results & Data Results & Data Vital Signs (Past 12 Hours) Vital Signs Temp Pulse Pulse Resp BP BP Pulse Ox 08/05/23 19:07 77 18 97 08/05/23 16:12 74 08/05/23 15:56 36.8 C 64 18 98/59 L 98 08/05/23 12:04 36.8 C 56 L 19 97/60 L 95 08/05/23 08:45 O2 Del Method O2 Flow Rate 08/05/23 19:07 Nasal Cannula 3 08/05/23 16:12 08/05/23 15:56 Room Air 08/05/23 12:04 CPAP 08/05/23 08:45 Oxymask 4 all noted and reviewed including below
[2023-08-06] MEDS: guaiFENesin/DEXTROM SYRUP 200MG/20MG 10ML UDC PO SCH ×2 (04:20→07:50)
[2023-08-06] MEDS: ENOXAPARIN INJ 40 MG/0.4 ML SYR SQ SCH (05:49)
[2023-08-06] MEDS: BUDESONIDE 0.25 MG/2 ML VIAL (PULMICORT) NEB SCH (07:22)
[2023-08-06] MEDS: FORMOTEROL 20 MCG/2 ML VIAL INH SCH (07:22)
[2023-08-06] MEDS: SODIUM CHLOR 7% 4 ML NEB NEB SCH (07:29)
[2023-08-06] MEDS: FLUTICASONE PROPIONATE NA SPR 16 GM BTL SCH (07:49)
[2023-08-06] MEDS: methylPREDNISolone 40 MG in SYRINGE 0 ML IV SCH (07:51)
[2023-08-06 09:23] LABS: Albumin Globulin Ratio 1.3 (0.9-2); Albumin Level 3.5 gm/dl (3.4-5.0); Bilirubin,Total 0.5 mg/dl (0.2-1.0); Calcium 8.5 mg/dl (8.6-10.3); Creatinine Clr Calc Pharmacy 85.2 ml/min; Est GFR (African American) 82.2 ml/min; Est GFR (Non-African American) 70.9 ml/min; Globulin 2.6 gm/dl (2.5-4.0); Potassium 3.6 mmol/L (3.5-5.1); Total Protein 6.1 gm/dl (6.0-8.3)
--- NOTE | 2023-08-06 15:15 | Discharge Summary ---
Date of Service August 06, 2023 Admission HPI Per Admitting Provider 58-year-old female with past med history significant for cough variant asthma currently not on any inhalers presents with cough and shortness of breath and found to have COVID. Patient states 4 days ago she developed sore throat, next day she had headaches and fatigue and cough. Headache lasted for 2 days and resolved. Since yesterday she is having lot of cough short of breath and runny nose. Denies fevers. She went to [facility] [place] and thought she has pneumonia and also given dose of steroid and sent here. Respiratory bio fire came back positive for COVID. Currently requiring 10 liters oxygen. Having lot of cough. Currently no headache. No blurred visions. No earache. No chest pain. No some nausea. Appetite is down. No abdominal pain. No swelling in the legs. No rash. Micturating okay. Past medical history. As mentioned above Past surgical history. Right arm cyst removed. Removal of pilonidal cyst. Family history. Paternal grandfather had cancer. Maternal grandmother had cancer. Uncle had cancer. Sister had gallbladder removal. Father and mother both had hypertension. Social history. Former smoker. No alcohol use. No drug use. Admission Exam Per Admitting Provider General- Not in distress Head- atraumatic Eyes- PERRL. ENT- oropharynx clear Neck- supple, no JVD. Lungs- B/L diminished breath sounds. No obvious wheezing. Heart- regular rhythm; no murmur, no gallop. Abdomen- normal bowel sounds, soft, nontender, no distension. Extremities- no pretibial edema, moves extremities. Neuro- alert, oriented x 3; PERRL, no facial palsy; no dysarthria; moves extremities. Skin- warm & dry Principal Diagnosis ACUTE HYPOXEMIC RESPIRATORY FAILURE SECONDARY TO COVID 19 PNEUMONIA, ASTHMA EXACERBATION Discharge Exam Constitutional: WD/WN, vitals as above, NAD, sitting up in bed, pleasant, conversing easily Respiratory: Bilateral basilar breath sounds; no added sound. Cardiovascular: RRR, no murmur, no edema Vessels: no JVD or carotid bruit Chest: normal inspection of chest Abdomen: normal bowel sounds, soft, nontender, no hepatosplenomegaly Musculoskeletal: no cyanosis or clubbing, extremities motor strength 5/5 Skin: no rashes, warm and dry normal turgor Neurologic: PERRL, EOMI, accommodation nl, no face palsy, no dysarthria CN's II- XI intact bilaterally and moves all extremities Psychiatric: A+Ox3, euthymic affect Discharge Data Allergies Allergy/AdvReac Type Severity Reaction Status Date / Time prochlorperazine AdvReac spasms Verified 07/29/23 00:57 [From Compazine] Consultations 07/29/23 00:51 ED Decision to Admit Stat 07/29/23 08:00 Consult Pulmonology Routine Ordered Studies 07/29/23 07:15 CT angio chest PE protocol Stat Hospital Course (1) Acute hypoxemic respiratory failure: per 58-year-old female past med significant for cough variant asthma currently not on any inhalers presents with cough and shortness of breath and found to have COVID 19 infection requiring 10 L oxygen. Acute hypoxemic respiratory failure Secondary to COVID 19 Pneumonia, Asthma Exacerbation Patient presented with cough and shortness of breath. COVID-[address] chest on admission showed dependent consolidation in both lung bases Patient was requiring 10 L of oxygen at admission Patient was admitted to telemetry floor for further management. Patient was started on remdesivir, Solu-Medrol and [id number] DuoNebs. Pulmonology was consulted for comanagement. Patient's oxygenation status improved throughout the hospitalization; To stable oxygen evaluation was done; patient needed 1 L of oxygen at discharge She was discharged home with azithromycin for 3 days, Symbicort inhaler and tapering dose of prednisone. Patient to follow-up with PCP and pulmonology at discharge Please note the above document was generated using voice recognition software. It may contain grammatical, syntax or spelling errors. Any formal questions or concerns about the content, text or information contained within the body of this dictation should be directly addressed to the provider for clarification Total Time Total Time Spent Total Time Spent (In Minutes): 35 Total Time Includes: Examination of the Patient, Discharge Planning, Medication Reconciliation, Communication With Other Providers and Other Discharge Plan Discharge Items Patient Disposition: Home - Self-Care Reason For Visit: ASTHMA EX, COVID Discharge Diagnosis: Asthma exacerbation COVID-19 infection Activity: Resume your previous activity Non-emergency contact: Primary Care Provider Call non-emergency contact if: you have any medication questions and your symptoms worsen Follow-up/Referrals: Elian Newman MD [Primary Care Provider] - (Date & Time 08/12/2023 1:00 PM Provider Elian Newman MD Department Family Practice [facility] ) Diet: Regular Addtl Attending Provider Instructions: You were admitted to the hospital due to asthma exacerbation due to COVID-19 infection. You are prescribed following medication: 1) Take prednisone 20 mg once a day for 2 days, then take 10 mg once a day for 2 days. 2) Tessalon per as needed 3 times a day for cough 3) azithromycin 500 mg daily for 3 days 4) Symbicort inhaler twice daily. For the long-term asthma care, please follow-up with pulmonology (Dr. Vicente). Please call the [facility] scheduling for appointment. Please use oxygen at 1 L on exertion. The oxygen saturation goal is greater than 90%. An appointment will be set up with your primary care doctor for sometime next week. Pending Studies at Discharge: No Stand-Alone Forms: My [facility], Smoking Cessation Medications and DC Order Prescriptions: New ipratropium-albuterol 0.5 mg-3 mg(2.5 mg base)/3 mL Solution For Nebulization 3 ml NEB QID PRN (Reason: shortness of breath) 3 Days Qty: 90 0RF benzonatate 100 mg Capsule 100 mg PO TID PRN (Reason: cough) Qty: 30 0RF budesonide-formoterol [Symbicort] 80-4.5 mcg/actuation HFA aerosol inhaler 1 inh inhalation BID Qty: 10.2 0RF prednisone 20 mg tablet See Taper PO DAILY Qty: 3 0RF Taper: Taper, Blank 20 mg DAILY for 2 Days 10 mg DAILY for 2 Days azithromycin 500 mg tablet 500 mg PO DAILY 3 Days Qty: 3 0RF Discharge Orders: Discharge Order (Routine); Ordered 08/06/23 Ordered By: Han Guerra Admission Data Admit Date/Time: 07/29/23 04:34 Attending Provider: Han Guerra Admit Provider: Man Du Primary Care Provider: Elian Newman Other Providers: Man Du; Yessi Vicente; Hylton,Eli L; Panlilio,Solitario A. Other Interventions: Discharge Summary Assessment (RN) Last Done: 08/06/23 13:37
== END 2023-08-06 14:40 | disposition home or self-care (01) | DRG 177 ==
LOC: ED 20:31 → EDINP 07-29 04:34 → SUATTDRO 07-29 04:34 → 2S 07-29 05:16